=== PATIENT | male | born 1965 | race Caucasian/White ===

== ENCOUNTER 2016-02-29 11:38 | Emergency (ER) | payer OTHER ==
--- NOTE | 2016-02-29 12:53 | ED ---
General Adult HPI - General Chief complaint: Extremity Injury, Lower Stated complaint: LEFT ANKLE INJURY Source: patient, family, RN notes reviewed Mode of arrival: ambulatory - History of Present Illness Initial comments: Chief complaint history of present illness a 50-year-old male here for complaint of pain to his left ankle and left proximal fibula area. The patient reports he slipped and fell on the ice yesterday around 2:30 AM. He has a small bruise on his inner left arm but does not complain of discomfort in that area. No head injury. No other complaints. - Related Data Home Medications Medication Instructions Recorded Confirmed HYDROcodone/IBUPROFEN 7.5-200 1 tab PO DAILY PRN 02/29/16 02/29/16 [Vicoprofen 7.5-200 mg] Ibuprofen [Motrin] 800 mg PO Q6HR PRN 02/29/16 02/29/16 Naproxen Sodium [Aleve] 880 mg PO DAILY PRN 02/29/16 02/29/16 Previous Rx's Medication Instructions Recorded Hydrocodone/Acetaminophen [[place] 1 each PO Q6HR PRN #30 tab 02/29/16 5-325] Allergies Allergy/AdvReac Type Severity Reaction Status Date / Time No Known Allergies Allergy Verified 02/29/16 12:51 Review of Systems ROS Statement: Those systems with pertinent positive or pertinent negative responses have been documented in the HPI. Review of systems no headache no visual acuity changes no neck pain no chest pain no shortness of breath no GI or complaints or problems no neuro deficits. His pain is to the left leg and ankle. All systems were reviewed. Past medical problems significant for an injury off a 4 vargas. Resulting in fractured toes on his left foot and rib fractures. He also has history of migraines in the anxiety. He denies any surgeries. Family history mother had breast cancer. Patient denies any ALLERGIES. He smokes strongly encouraged stop drinks alcohol socially. ROS Other: All systems not noted in ROS Statement are negative. Past Medical History Additional Past Medical History / Comment(s): migraines History of Any Multi-Drug Resistant Organisms: None Reported Past Surgical History: No Surgical Hx Reported Past Psychological History: Anxiety Smoking Status: Current every day smoker Past Alcohol Use History: None Reported Past Drug Use History: None Reported General Exam - General Exam Comments Initial Comments: General: The patient is awake and alert, complaining of left ankle pain. Vital signs show temperature 97.8 pulse 60 respiratory rate 18 blood pressure 137/90. Eye: Pupils are equal, , extra-ocular movements are intact; there is normal conjunctiva bilaterally. No signs of icterus. Ears, nose, mouth and throat: There are moist mucous membranes Neck: The neck is supple, there is no tenderness Cardiovascular: There is a regular rate and rhythm. No murmur, rub or gallop is appreciated. Respiratory: Lungs are clear to auscultation, respirations are non-labored, breath sounds are equal. No wheezes, stridor, rales, or rhonchi. Gastrointestinal: Soft, non-distended, non-tender abdomen without masses or organomegaly noted. There is no rebound or guarding present. No CVA tenderness. Bowel sounds are unremarkable. Back: There is no tenderness to palpation in the midline. There is no obvious deformity. No rashes noted. Musculoskeletal: All extremities normal except a small bruise on the inner distal left humerus but with full range of motion to his left arm no complaints of any significant discomfort. Also pain to the left ankle and proximal left fibula. Norvasc status of foot is intact. Minimal swelling. X-rays pending.. Neurological: No neuro deficits no numbness no tingling. Skin: Skin is warm and dry and no rashes or lesions are noted. Psychiatric: Past history of anxiety not currently taking any medications. No complaints of any problems with anxiety at this time. Course Vital Signs 02/29/16 02/29/16 12:22 13:31 Temperature 97.8 F 98.6 F Pulse Rate 60 62 Respiratory 18 18 Rate Blood Pressure 137/90 110/67 O2 Sat by Pulse 98 96 Oximetry Medical Decision Making - Medical Decision Making X-ray of the tib-fib and left ankle shows a spiral fracture distal fibula diaphysis. As read by Dr. Savage. Patient had an OCL splint short leg cast applied 3 x 30 and chest. The patient will be referred to his orthopedic surgeon if he does not have an orthopedic surgeon, [facility] Disposition Clinical Impression: Fibula fracture Disposition: HOME SELF-CARE Condition: Fair Instructions: Ankle Fracture (ED) Additional Instructions: Use crutches, ice elevate wear splint. Follow-up with your orthopedic surgeon, family doctor or [facility]. Prescriptions: Hydrocodone/Acetaminophen [[place] 5-325] 1 each PO Q6HR PRN #30 tab PRN Reason: Pain Referrals: Nonstaff,Physician [Primary Care Provider] - 1-2 days Ramos Elkins MD [STAFF PHYSICIAN] - 1-2 days Time of Disposition: 15:12
--- NOTE | 2016-02-29 13:05 | XR ---
EXAMINATION TYPE: XR ankle complete LT DATE OF EXAM: 02/29/2016 12:59 PM COMPARISON: NONE HISTORY: Pain TECHNIQUE: 3 views left ankle FINDINGS: There is a spiral fracture fracture through the metaphysis of the distal fibula. Soft tissu es appear normal. Ankle mortise is intact. IMPRESSION: 1. Spiral fracture distal fibula metaphysis.
--- NOTE | 2016-02-29 13:07 | XR ---
EXAMINATION TYPE: XR tibia fibula LT DATE OF EXAM: 02/29/2016 1:00 PM COMPARISON: Left ankle same date HISTORY: Fall, pain TECHNIQUE: 2 views left tibia and fibula FINDINGS: Spiral fracture of the distal metaphyseal fibula is again evident. On this image there appe ars to be a small avulsion from the inferior lateral malleolus. On the anterior tibia is excluded fro m the lateral projection. Tibia and fibula otherwise appear intact. IMPRESSION: 1. Spiral fracture distal metaphyseal fibula. 2. A small avulsion from the distal fibula is better visualized on this examination than on the ankle images.
[2016-02-29 15:30] VITALS: BP 116/63; PULSE 65; RESP 16; TEMP 98.4
== END 2016-02-29 15:38 | disposition home or self-care (01) ==
LOC: EC 11:38
DX: S89.302A Unspecified physeal fracture of lower end of left fibula, initial encounter for closed fracture (principal); F17.200 Nicotine dependence, unspecified, uncomplicated; W00.0XXA Fall on same level due to ice and snow, initial encounter
CPT/HCPCS: 29515; 99283

== ENCOUNTER 2023-05-10 13:18 | Inpatient (IN) | payer OTHER ==
[2023-05-10] MEDS: ASPIRIN 81 MG PO STA (13:27)
[2023-05-10] MEDS: HEPARIN SODIUM 1,000 UN/ML (10ML VL) IV ONE ×2 (13:30→13:54)
[2023-05-10] MEDS ORDERED: LIDOCAINE 1% INJ 10MG/ML (20 ML MDV) ONE (13:30)
[2023-05-10] MEDS ORDERED: VERAPAMIL 2.5 MG/ML 2 ML AMP ONE (13:30)
[2023-05-10] MEDS: NITROGLYCERIN OINT 1 INCH/GM PACKET TOPICAL STA (13:32)
[2023-05-10 13:38] LABS: Basophils # (A) 0.1 k/uL (0-0.2); Basophils % (A) 1 %; Eosinophils # (A) 0.4 k/uL (0-0.7); Eosinophils % (A) 3 %; HCT 47.6 % (39.0-53.0); HGB 16.1 gm/dL (13.0-17.5); Lymphocytes # (A) 2.4 k/uL (1.0-4.8); Lymphocytes % (A) 16 %; MCH 32.8 pg (25.0-35.0); MCHC 33.9 g/dL (31.0-37.0); MCV 96.9 fL (80.0-100.0); Mean Platelet Volume 6.8; Monocytes # (A) 0.6 k/uL (0-1.0); Monocytes % (A) 4 %; Neutrophils # (A) 10.9 k/uL (1.3-7.7); Neutrophils % (A) 75 %; Platelet Count 394 k/uL (150-450); RBC 4.91 m/uL (4.30-5.90); RDW 12.6 % (11.5-15.5); WBC 14.4 k/uL (3.8-10.6)
--- NOTE | 2023-05-10 13:38 | ED ---
General Adult HPI - General Chief complaint: Chest Pain Stated complaint: CHEST PAIN Time Seen by Provider: 05/10/23 13:22 Source: patient, RN notes reviewed, old records reviewed Mode of arrival: ambulatory Limitations: no limitations - History of Present Illness Initial comments: This is a 57-year-old male with a past medical history significant for smoking and strong family history of heart disease. Patient states he is quite a heavy smoker. Patient comes in today because he complaining of chest pain that radiates down his left arm. Patient states that started about 2 hours prior to arrival. Patient denies any difficulty breathing or diaphoretic episode. Patient denies lightheadedness or dizziness. Patient [place] any back pain. Patient denies any abdominal pain patient has nausea vomiting or diarrhea. Patient states he has no prior history of heart disease. Patient states he did take 2 aspirin at home prior to arrival. - Related Data Home Medications Medication Instructions Recorded Confirmed HYDROcodone/IBUPROFEN 7.5-200 1 tab PO DAILY PRN 02/29/16 02/29/16 [Vicoprofen 7.5-200 mg] Ibuprofen [Motrin] 800 mg PO Q6HR PRN 02/29/16 02/29/16 Naproxen Sodium [Aleve] 880 mg PO DAILY PRN 02/29/16 02/29/16 Previous Rx's Medication Instructions Recorded Hydrocodone/Acetaminophen [[place] 1 each PO Q6HR PRN #30 tab 02/29/16 5-325] Allergies Allergy/AdvReac Type Severity Reaction Status Date / Time No Known Allergies Allergy Verified 02/29/16 12:51 Review of Systems ROS Statement: Those systems with pertinent positive or pertinent negative responses have been documented in the HPI. ROS Other: All systems not noted in ROS Statement are negative. Past Medical History Additional Past Medical History / Comment(s): migraines History of Any Multi-Drug Resistant Organisms: None Reported Past Surgical History: No Surgical Hx Reported Past Psychological History: Anxiety Past Alcohol Use History: None Reported Past Drug Use History: None Reported General Exam - General Exam Comments Initial Comments: GENERAL: Patient is well-developed and well-nourished. Patient is nontoxic and well- hydrated and is in moderate distress. ENT: Neck is soft and supple. No significant lymphadenopathy is noted. Oropharynx is clear. Moist mucous membranes. Neck has full range of motion without eliciting any pain. EYES: The sclera were anicteric and conjunctiva were pink and moist. Extraocular movements were intact and pupils were equal round and reactive to light. Eyelids were unremarkable. PULMONARY: Unlabored respirations. Good breath sounds bilaterally. No audible rales rhonchi or wheezing was noted. CARDIOVASCULAR: There is a regular rate and rhythm without any murmurs gallops or rubs. ABDOMEN: Soft and nontender with normal bowel sounds. SKIN: Skin is clear with no lesions or rashes and otherwise unremarkable. NEUROLOGIC: Patient is alert and oriented x3. Cranial nerves II through XII are grossly intact. Motor and sensory are also intact. Normal speech, volume and content. Symmetrical smile. MUSCULOSKELETAL: Normal extremities with adequate strength and full range of motion. LYMPHATICS: No significant lymphadenopathy is noted PSYCHIATRIC: Normal psychiatric evaluation. Limitations: no limitations Course Vital Signs 05/10/23 13:21 Temperature 98 F Pulse Rate 69 Respiratory 16 Rate Blood Pressure 162/100 O2 Sat by Pulse 99 Oximetry Medical Decision Making - Medical Decision Making EKG is interpreted by myself but EKG shows a sinus rhythm at 63 bpm VT interval 174 QRS is 93 QT interval is 422 QTc is 429. Patient's EKG shows ST segment elevation in 1 and aVL as well as depression in 3 and aVF. Immediately after seeing the EKG I called a STEMI overhead. Was pt. sent in by a medical professional or institution ([facility], OVERHEAD DISTRIBUTION ENGINEER, urgent care, hospital, or senior care...) When possible be specific @ -No Did you speak to anyone other than the patient for history (EMS, parent, family, police, friend...)? What history was obtained from this source @ -No Did you review nursing and triage notes (agree or disagree)? Why? @ -I reviewed and agree with nursing and triage notes Were old charts reviewed (outside hosp., previous admission, EMS record, old EKG, old radiological studies, urgent care reports/EKG's, senior care records)? Report findings @ -I reviewed prior charts and prior lab work on this patient Differential Diagnosis (chest pain, altered mental status, abdominal pain women, abdominal pain men, vaginal bleeding, weakness, fever, dyspnea, syncope, headache, dizziness, GI bleed, back pain, seizure, CVA, palpatations, mental health, musculoskeletal)? @ -Differential Chest Pain: Stable Angina, Unstable Angina, STEMI, NSTEMI Aortic Dissection, Pneumothorax, Musculoskeletal, Esophageal Spasm GERD, Cholecystitis, Pancreatitis, Zoster, this is not meant to be an all-inclusive list. EKG interpreted by me (3pts min.). @ -As above X-rays interpreted by me (1pt min.). @ -Chest x-ray shows no acute abnormality CT interpreted by me (1pt min.). @ -None done U/S interpreted by me (1pt. min.). @ -None done What testing was considered but not performed or refused? (CT, X-rays, U/S, labs)? Why? @ -None What meds were considered but not given or refused? Why? @ -None Did you discuss the management of the patient with other professionals (professionals i.e. , PA, OVERHEAD DISTRIBUTION ENGINEER, lab, RT, psych nurse, social sciences lecturer, applications scientist, teacher, tactical response group officer, housing case manager)? Give summary @ -I spoke with Dr. Amado and [facility] Dr. Amado wanted the patient up for lab as soon as possible Was smoking cessation discussed for >3mins.? @ -No Was critical care preformed (if so, how long)? @ - 30 minutes Were there social determinants of health that impacted care today? How? (Homelessness, low income, unemployed, alcoholism, drug addiction, transportation, low edu. Level, literacy, decrease access to med. care, [facility], rehab)? @ -No Was there de-escalation of care discussed even if they declined (Discuss DNR or withdrawal of care, Hospice)? DNR status @ -No What co-morbidities impacted this encounter? (DM, HTN, Smoking, COPD, CAD, Cancer, CVA, ARF, Chemo, Hep., AIDS, mental health diagnosis, sleep apnea, morbid obesity)? @ -None Was patient admitted / discharged? Hospital course, mention meds given and route, prescriptions, significant lab abnormalities, going to OR and other pertinent info. @ -Patient arrived and had a STEMI on the EKG I called this overhead and spoke with Dr. Amado. Patient was given nitroglycerin immediately he also was given heparin and Lipitor. Undiagnosed new problem with uncertain prognosis? @ -No Drug Therapy requiring intensive monitoring for toxicity (Heparin, Nitro, Insulin, Cardizem)? @ -No Were any procedures done? @ -No Diagnosis/symptom? @ -STEMI Acute, or Chronic, or Acute on Chronic? @ -Acute Uncomplicated (without systemic symptoms) or Complicated (systemic symptoms)? @ -Complicated Side effects of treatment? @ -No Exacerbation, Progression, or Severe Exacerbation? @ -No Poses a threat to life or bodily function? How? (Chest pain, [place], [place], pneumonia, PE, COPD, DKA, ARF, appy, cholecystitis, CVA, Diverticulitis, Homicidal, Suicidal, threat to staff... and all critical care pts) @ -Yes this can lead to poor ejection fraction and poor perfusion and endorgan dysfunction Critical Care Time Critical Care Time: Yes Total Critical Care Time: 30 Disposition Clinical Impression: ST elevation myocardial infarction (STEMI) Disposition: ADMITTED IP TO THIS HOSP Referrals: [facility] [Primary Care Provider] - 1-2 days Time of Disposition: 13:38
[2023-05-10] MEDS: HEPARIN SOD,PORK IN 0.45% NACL 25,000 UNIT in 0.45% NACL 1 250ML.BAG IV SCH (13:39)
[2023-05-10] MEDS ORDERED: fentaNYL (PF) 50 MCG/ML 2 ML AMP ONE (13:41)
[2023-05-10] MEDS: NITROGLYCERIN SL TABS 0.4 MG TAB SUBLINGUAL STA (13:41)
[2023-05-10] MEDS ORDERED: HEPARIN SODIUM 1,000 UN/ML (10ML VL) ONE (13:41)
[2023-05-10] MEDS: fentaNYL (PF) 50 MCG/ML 2 ML AMP IVP ONE (13:44)
[2023-05-10] MEDS: VERAPAMIL SYRINGE (5 MG/10 ML) INTRAARTER ONE (13:46)
[2023-05-10] MEDS: LIDOCAINE 1% INJ 10MG/ML (30 ML VIAL-PF) SQ ONE (13:46)
[2023-05-10] MEDS: SODIUM CHLORIDE 0.9% 1,000 ML IV ONE (13:50)
[2023-05-10 13:52] LABS: INR 0.9 (<1.2); Partial Thromboplastin Time 22.8 sec (22.0-30.0); Prothrombin Time 10.1 sec (10.0-12.5)
[2023-05-10] MEDS: MIDAZOLAM 2 MG/2 ML VIAL IVP ONE (13:54)
[2023-05-10] MEDS ORDERED: PRASUGREL 10 MG TAB ONE ×3 (13:57→13:58)
--- NOTE | 2023-05-10 13:59 | XR ---
EXAMINATION TYPE: XR chest 1V DATE OF EXAM: 05/10/2023 1:39 PM CLINICAL INDICATION:Male, 57 years old with history of Chest Pain; COMPARISON: Chest radiographs from 09/06/2014. TECHNIQUE: XR chest 1V Frontal view of the chest. FINDINGS: Lungs/Pleura: There is no evidence of pleural effusion, focal consolidation, or pneumothorax. Pulmonary vascularity: Unremarkable. Heart/mediastinum: Cardiomediastinal silhouette is unremarkable. Musculoskeletal: No acute osseous pathology. IMPRESSION: No acute cardiopulmonary disease/process.
[2023-05-10] MEDS: PRASUGREL 10 MG TAB PO ONE (14:00)
[2023-05-10 14:04] LABS: ALT 28 U/L (4-49); AST 25 U/L (17-59); African American GFR (CKD) >90 (>60 ml/min/1.73 sqM); Albumin 4.6 g/dL (3.5-5.0); Alkaline Phosphatase 114 U/L (38-126); Anion Gap 13 mmol/L; Blood Urea Nitrogen 11 mg/dL (9-20); Calcium 9.6 mg/dL (8.4-10.2); Carbon Dioxide 21 mmol/L (22-30); Chloride 105 mmol/L (98-107); Glucose 147 mg/dL (74-99); Non-African American GFR(CKD) >90 (>60 ml/min/1.73 sqM); Potassium 3.7 mmol/L (3.5-5.1); Sodium 139 mmol/L (137-145); Total Bilirubin 1.3 mg/dL (0.2-1.3); Total Protein 7.8 g/dL (6.3-8.2)
[2023-05-10] MEDS ORDERED: ASPIRIN 81 MG ONE (14:24)
[2023-05-10] MEDS: ASPIRIN 81 MG PO ONE (14:24)
[2023-05-10] MEDS: IOPAMIDOL-370 200ML BTL INJ ONE (14:25)
--- NOTE | 2023-05-10 14:42 | P.CRDCN ---
History of Present Illness Consult date: 05/10/23 History of present illness: History of Present Illness: The patient is a 57-year-old male with known history of chronic tobacco use, does not follow with a physician on a regular basis who presented to the emergency room with an acute episode of chest discomfort while doing physical activity associated with dyspnea. In the emergency room he was found to have ST elevation in lead I and aVL and ST depression inferiorly. Patient has been complaining of chest discomfort on and off for the last couple months. He has no prior documented history of CAD or history of CHF. He has no prior cardiac workup. He has no documented history of hypertension, hyperlipidemia or diabetes although he has not seen a physician on a regular basis. He is a smoker but no history of alcohol intake or drug use. He denies any peripheral edema, PND or orthopnea. He has no history of arrhythmia, significant dizziness or syncope. Medications: Naprosyn on a as needed basis Review of Systems: Respiratory: No history of asthma, bronchitis or recent cough. GI: No nausea or vomiting . No history of peptic ulcer disease. No recent GI bleed. : No hematuria or dysuria. Nervous System: No stroke or seizure. Physical Examination: 57-year-old male, alert oriented in mild discomfort, evaluated in the cardiac catheterization laboratory,Blood pressure 178/103, Heart rate 80 Head: Normocephalic. Eyes: Sclerae nonicteric. Neck: Good carotid upstroke, no bruit, no jugular venous distention. Lungs: Clear to auscultation anteriorly. Heart: Regular rate and rhythm, S1-S2, no S3, no rub. No murmur. Abdomen: Soft nontender, positive bowel sounds no organomegaly. Extremities: No edema, intact distal pulses. Labs: Hemoglobin 16.1, potassium 3.7, BUN 11, creatinine 0.92, glucose 147, troponin less than 0.012. Chest x-ray with no acute infiltrate EKG: Sinus mechanism rate of 63 ST elevation in lead I and aVL with T wave inversion and ST depression in lead III and aVF consistent with high lateral wall myocardial infarction Impression: 1. Acute STEMI probable in the diagonal branch territory 2. Chronic tobacco use 3. Elevated blood sugar, no documented history of diabetes Plan: 1. Proceed with emergent cardiac catheterization, the risks and the complications were discussed with the patient 2. Obtain an echocardiogram with Doppler 3. Smoking cessation 4. Follow blood sugar 5. Depending on his progress further recommendations will be made, thank you for this consult we will follow with you. Past Medical History Additional Past Medical History / Comment(s): migraines History of Any Multi-Drug Resistant Organisms: None Reported Past Surgical History: No Surgical Hx Reported Past Psychological History: Anxiety Past Alcohol Use History: None Reported Past Drug Use History: None Reported Medications and Allergies Home Medications Medication Instructions Recorded Confirmed Type HYDROcodone/IBUPROFEN 7.5-200 1 tab PO DAILY PRN 02/29/16 02/29/16 History [Vicoprofen 7.5-200 mg] Hydrocodone/Acetaminophen [[place] 1 each PO Q6HR PRN #30 tab 02/29/16 Rx 5-325] Ibuprofen [Motrin] 800 mg PO Q6HR PRN 02/29/16 02/29/16 History Naproxen Sodium [Aleve] 880 mg PO DAILY PRN 02/29/16 02/29/16 History Allergies Allergy/AdvReac Type Severity Reaction Status Date / Time No Known Allergies Allergy Verified 02/29/16 12:51 Physical Exam Vitals: Vital Signs Temp Pulse Resp BP Pulse Ox 05/10/23 13:33 80 18 178/103 98 05/10/23 13:27 70 24 181/114 100 05/10/23 13:21 98 F 69 16 162/100 99 Intake and Output 05/09/23 05/10/23 05/10/23 22:59 06:59 14:59 Intake Total 600 Balance 600 Intake: IV 600 Other: Weight 72.575 kg Results 05/10/23 13:35 05/10/23 13:43 Cardiac Enzymes 05/10/23 05/10/23 Range/Units 13:35 13:43 AST 25 (17-59) U/L Troponin I <0.012 (0.000-0.034) ng/mL Coagulation 05/10/23 Range/Units 13:35 PT 10.1 (10.0-12.5) sec APTT 22.8 (22.0-30.0) sec CBC 05/10/23 Range/Units 13:35 WBC 14.4 H (3.8-10.6) k/uL RBC 4.91 (4.30-5.90) m/uL Hgb 16.1 (13.0-17.5) gm/dL Hct 47.6 (39.0-53.0) % Plt Count 394 (150-450) k/uL Comprehensive Metabolic Panel 05/10/23 Range/Units 13:43 Sodium 139 (137-145) mmol/L Potassium 3.7 (3.5-5.1) mmol/L Chloride 105 (98-107) mmol/L Carbon Dioxide 21 L (22-30) mmol/L BUN 11 (9-20) mg/dL Creatinine 0.92 (0.66-1.25) mg/dL Glucose 147 H (74-99) mg/dL Calcium 9.6 (8.4-10.2) mg/dL AST 25 (17-59) U/L ALT 28 (4-49) U/L Alkaline Phosphatase 114 (38-126) U/L Total Protein 7.8 (6.3-8.2) g/dL Albumin 4.6 (3.5-5.0) g/dL Intake and Output 05/09/23 05/10/23 05/10/23 22:59 06:59 14:59 Intake Total 600 Balance 600 Intake: IV 600 Other: Weight 72.575 kg Patient Weight 05/11/23 06:59 Weight 72.575 kg 05/10/23 13:35 05/10/23 13:43
[2023-05-10] MEDS: SODIUM CHLORIDE 0.9% 1,000 ML in EMPTY BAG 1 BAG IV SCH (14:48)
[2023-05-10] MEDS ORDERED: NITROGLYCERIN SL TABS 0.4 MG TAB SUBLINGUAL PRN (14:48)
[2023-05-10] MEDS ORDERED: ATROPINE SULFATE 0.1 MG/ML 10ML SYRINGE IV PRN (14:48)
[2023-05-10] MEDS ORDERED: RX INFO: IV CONTRAST WAS GIVEN 1 EACH MISC MISCELLANE PRN (14:48)
[2023-05-10] MEDS ORDERED: MAG HYDROX/AL HYDROX/SIMETH 30 ML CUP PO PRN (14:48)
[2023-05-10] MEDS ORDERED: ZOLPIDEM 5 MG TAB PO PRN (14:48)
--- NOTE | 2023-05-10 14:48 | P.CARDCATH ---
Date of Procedure: 05/10/23 Description of Procedure: Cardiac Catheterization: The patient is a 57-year-old male with no prior documented history of CAD who presented with an acute myocardial infarction. Recommendations were made regarding cardiac catheterization, the risks and the complications were discussed with the patient who is in full understanding and agreement. Procedure Description: Patient was brought to petroleum refinery laborer in fasting semi-sedated state after receiving Fentanyl and Benadryl achieiving moderate conscious sedated state. Using Xylocaine Anesthesia and modified Seldinger technique, a 6-British sheath was introduced in the right radial artery . Subsequently, selective coronary angiography was performed using a 5-British 3.5 bend Hua catheter and 6 British EBU 3.75 guiding catheter. Multiple views of the coronary artery including hemiaxial views were obtained. The right Hua catheter was used to cross the aortic valve and LVEDP was calculated. PCI: Using the 6 [place] EBU 3.75 guiding catheter the left main was cannulated subsequently a 0.014 BMW J-wire was positioned in the first diagonal branch. A 2.25 x 12 mm trek balloon was advanced and 1 inflation at 8 muna was done, after removing the balloon a 2.25 x 15 mm Xience víctor point stent was deployed at 16 muna. Subsequently an Ateeda IVUS catheter was introduced and imaging were obtained following that, a 2.5 x 12 mm NC trek balloon was advanced and 1 inflation at 10 muna was done. After removing the wire images were obtained and revealed stable successful stenting. Catheter and sheath were removed. Hemostasis was obtained with deployment of vascular band . There was no immediate complication. Patient was returned to room in stable condition. Of note, the patient received a total of 2000 units of intravenous heparin as well as intra-arterial verapamil. He received a loading dose of Effient, his ACT was monitored. His chest discomfort and EKG changes improved at the end of the procedure. Findings: Left main: This is a short size vessel that bifurcated into LAD and left circumflex, left main has no obstructive disease LAD: This is a large size vessel, reaching to the apex with a wraparound apex segment giving rise to 2 diagonal branch, the first diagonal branch has a 95% stenosis proximally after the takeoff of the diagonal branch there is intimal disease of 30%, the rest of the vessel has no high-grade stenosis Left circumflex: This is a dominant vessel large in caliber giving rise to 2 obtuse marginal branch and distally bifurcating into PDA and PLV, the left circumflex and its branches have no obstructive disease RCA: This is a small nondominant vessel that has no evidence of high-grade stenosis Left Ventriculogram: Not performed Hemodynamics: There was no gradient across aortic valve, LVEDP was 8-10 mmHg Conclusion: 1. Severe stenosis in the first diagonal branch 2. Mild disease in the mid LAD 3. Left dominance 4. Successful stenting of the first diagonal branch with reduction of stenosis from 95% to 0% with intravascular ultrasound imaging Recommendations: The patient will continue on aspirin and Effient without any interruption for 1 year in addition to aggressive coronary risks modifications, attempting to maintain LDL less than 70 mg/dL. The findings and the recommendations were discussed with the patient and the family and they were in full understanding and agreement. Duration of sedation is 35 minutes.
[2023-05-10] MEDS ORDERED: NALOXONE 0.4 MG/ML 1 ML VIAL IV PRN (15:05)
[2023-05-10] MEDS ORDERED: MELATONIN 3 MG TABLET PO PRN (15:06)
[2023-05-10] MEDS ORDERED: HYDROcodone/APAP 5-325MG 1 EACH TAB PO PRN (15:06)
[2023-05-10] MEDS ORDERED: ACETAMINOPHEN TAB 325 MG TAB PO PRN (15:06)
[2023-05-10] MEDS ORDERED: bisacodyL 5 MG TABLET.DR PO PRN (15:06)
[2023-05-10] MEDS ORDERED: ONDANSETRON 4 MG/2 ML VIAL IVP PRN (15:06)
[2023-05-10] MEDS: SODIUM CHLORIDE 0.9% 500 ML 500 ML IV STA (15:43)
--- NOTE | 2023-05-10 16:00 | P.HPIM ---
History of Present Illness H&P Date: 05/10/23 Chief Complaint: chest pain Patient is a 57-year-old male with a past medical history of migraine headaches and nicotine dependency who presented to the emergency department with chest pain. In the ER he was found to have an acute ST segment elevated myocardial infarction with ST segment elevation in lead I and aVL with reciprocal ST depression inferiorly. He was emergently seen by cardiology. He was taken to the [facility] and underwent stenting of the first diagonal branch of the LAD. He was subsequently admitted to the ICU. Initial laboratory analysis consisted of CBC, coags, and CMP all of which were unremarkable. Initial troponin in the ER was unremarkable. Chest x-ray showed no acute cardiopulmonary process. Patient was started on aspirin, Lipitor, and Effient. Patient seen and examined at bedside. He is feeling much better after the cardiac cath. He reports that approximately 2 hours before arrival he started having chest discomfort associated with some pain in his arm and just overall not feeling well. He also reports intermittent chest discomfort for the last few months that he had initially attributed to GERD. He has not seen a physician in quite some years. He has no other complaints currently. Vital signs reviewed General: nontoxic, no distress, appears at stated age Derm: warm, dry Eyes: EOMI, no lid lag, anicteric sclera, pupils equal round reactive to light ENT: Nose and ears atraumatic Cardiovascular: S1S2 reg, no murmur, no edema Lungs: clear to auscultation bilateral, no rhonchi, no rales, no wheeze, no accessory muscle use Abdominal: soft, nontender to palpation, no guarding Ext: no gross muscle atrophy, no contractures Neuro: CN II-XII grossly intact, No focal neuro deficits Psych: Alert, oriented, appropriate affect Assessment/Plan: ST segment elevated myocardial infarction status post PCI to the first diagonal -Aspirin 81 mg daily, Effient 10 mg daily, Lopressor 25 mg twice daily, Lipitor 80 mg daily -Follow telemetry -Check echocardiogram -Cardiology consult reviewed -Check lipid profile Mildly elevated blood sugars -Suspect that this is elevated due to stress -Check A1c to rule out diabetes Nicotine dependency - cessation Imaging: As Per HPI Data Review: As Per HPI The patient is admitted with an anticipated greater than 2 midnight stay for evaluation of STEMI. Surrogate decision-maker: Mother CODE STATUS: Full DVT prophylaxis: Lovenox Anticipated discharge date: Pending Clinical course Anticipated discharge place: Pending Clinical Course This dictation was prepared using [employer] voice recognition software. Though every attempt is made to correct errors during dictation some may still exist. Past Medical History Additional Past Medical History / Comment(s): migraines, multiple broken bones History of Any Multi-Drug Resistant Organisms: None Reported Past Surgical History: No Surgical Hx Reported Past Psychological History: Anxiety Past Alcohol Use History: None Reported Past Drug Use History: None Reported Medications and Allergies Home Medications Medication Instructions Recorded Confirmed Type HYDROcodone/IBUPROFEN 7.5-200 1 tab PO DAILY PRN 02/29/16 02/29/16 History [Vicoprofen 7.5-200 mg] Hydrocodone/Acetaminophen [[place] 1 each PO Q6HR PRN #30 tab 02/29/16 Rx 5-325] Ibuprofen [Motrin] 800 mg PO Q6HR PRN 02/29/16 02/29/16 History Naproxen Sodium [Aleve] 880 mg PO DAILY PRN 02/29/16 02/29/16 History Allergies Allergy/AdvReac Type Severity Reaction Status Date / Time No Known Allergies Allergy Verified 02/29/16 12:51 Physical Exam Osteopathic Statement: *. No significant issues noted on an osteopathic structural exam other than those noted in the History and Physical/Consult. Vitals: Vital Signs Temp Pulse Resp BP Pulse Ox 05/10/23 15:30 70 16 130/83 97 05/10/23 15:20 62 13 130/83 97 05/10/23 15:10 69 13 130/83 96 05/10/23 15:00 68 23 127/79 96 05/10/23 14:50 97.6 F 60 16 127/79 98 05/10/23 14:43 69 20 05/10/23 13:33 80 18 178/103 98 05/10/23 13:27 70 24 181/114 100 05/10/23 13:21 98 F 69 16 162/100 99 Intake and Output 05/10/23 05/10/23 05/10/23 06:59 14:59 22:59 Intake Total 600 75 Output Total 0 Balance 600 75 Intake: IV 600 Intake, IV Titration 75 Amount Sodium Chloride 0.9% 1, 75 000 ml In Empty Bag 1 bag @ 1 ML/KG/HR 72.575 mls/ hr IV .[id number] [facility] Rx#: [id number] Oral 0 Output: Urine 0 Other: Weight 72.575 kg Results CBC & Chem 7: 05/10/23 13:35 05/10/23 13:43 Labs: Abnormal Lab Results - Last 24 Hours (Table) 05/10/23 05/10/23 Range/Units 13:35 13:43 WBC 14.4 H (3.8-10.6) k/uL Neutrophils # 10.9 H (1.3-7.7) k/uL Carbon Dioxide 21 L (22-30) mmol/L Glucose 147 H (74-99) mg/dL
[2023-05-10] MEDS ORDERED: Potassium Replacement Protocol 1 EACH MISC MISCELLANE PRN (20:21)
[2023-05-10] MEDS: ATORVASTATIN 80 MG TAB PO SCH (20:29)
[2023-05-10] MEDS: METOPROLOL TARTRATE 25 MG TAB PO SCH (20:29)
[2023-05-10] MEDS: POTASSIUM CHLORIDE ER 20 MEQ TAB.ER PO SCH (20:29)
[2023-05-11 04:58] LABS: Basophils # (A) 0.1 k/uL (0-0.2); Basophils % (A) 1 %; Eosinophils # (A) 0.5 k/uL (0-0.7); Eosinophils % (A) 5 %; HCT 42.2 % (39.0-53.0); HGB 13.9 gm/dL (13.0-17.5); Lymphocytes # (A) 2.9 k/uL (1.0-4.8); Lymphocytes % (A) 31 %; MCH 31.8 pg (25.0-35.0); MCHC 32.9 g/dL (31.0-37.0); MCV 96.4 fL (80.0-100.0); Mean Platelet Volume 6.7; Monocytes # (A) 0.6 k/uL (0-1.0); Monocytes % (A) 6 %; Neutrophils # (A) 5.1 k/uL (1.3-7.7); Neutrophils % (A) 55 %; Platelet Count 325 k/uL (150-450); RBC 4.38 m/uL (4.30-5.90); RDW 12.7 % (11.5-15.5); WBC 9.2 k/uL (3.8-10.6)
[2023-05-11 05:05] LABS: African American GFR (CKD) >90 (>60 ml/min/1.73 sqM); Anion Gap 4 mmol/L; Blood Urea Nitrogen 11 mg/dL (9-20); Calcium 8.4 mg/dL (8.4-10.2); Carbon Dioxide 19 mmol/L (22-30); Chloride 114 mmol/L (98-107); Glucose 95 mg/dL (74-99); Non-African American GFR(CKD) >90 (>60 ml/min/1.73 sqM); Potassium 4.2 mmol/L (3.5-5.1); Sodium 137 mmol/L (137-145)
--- NOTE | 2023-05-11 07:46 | P.PN ---
Subjective Progress Note Date: 05/11/23 PROGRESS NOTE The patient is a 57-year-old male with known history of chronic tobacco use, does not follow with a physician on a regular basis who presented to the emergency room with an acute episode of chest discomfort while doing physical activity associated with dyspnea. In the emergency room he was found to have ST elevation in lead I and aVL and ST depression inferiorly. Patient has been complaining of chest discomfort on and off for the last couple months. He has no prior documented history of CAD or history of CHF. He has no prior cardiac workup. He has no documented history of hypertension, hyperlipidemia or diabetes although he has not seen a physician on a regular basis. He is a s moker but no history of alcohol intake or drug use. He denies any peripheral edema, PND or orthopnea. He has no history of arrhythmia, significant dizziness or syncope. May 10: The patient presented with an acute STEMI yesterday and was found to have severe stenosis in the diagonal branch. He underwent stenting of that vessel. He is feeling well this morning. He denies any chest discomfort, dizziness or palpitations. He is in sinus mechanism and hemodynamically stable. Medications: Aspirin, Lipitor 80 mg daily, metoprolol 25 mg twice a day, Effient 10 mg daily PHYSICAL EXAMINATION: Blood pressure 103/80 heart rate 60 LUNGS: Clear to auscultation HEART: Regular rate and rhythm, S1, S2. No S3. No systolic murmur ABDOMEN: Soft, nontender, no organomegaly EXTREMETIES: No edema, right radial pulse intact LAB: WBC 9.2, hemoglobin 13.9, BUN 11, creatinine 1.72. EKG with resolution of the ST segment elevation IMPRESSION: 1. Status post stenting of the first diagonal branch in the setting of STEMI 2. History of tobacco use PLAN: 1. Continue present therapy 2. Increase physical activity and transfer to telemetry 3. Obtain an echocardiogram with Doppler 4. If stable probable discharge home tomorrow Objective - Vital Signs Vital signs: Vital Signs Temp 97.6 F 05/11/23 05:00 Pulse 63 05/11/23 07:00 Resp 10 L 05/11/23 07:00 BP 103/83 05/11/23 07:00 Pulse Ox 93 L 05/11/23 07:00 FiO2 Intake & Output 05/10/23 05/11/23 05/11/23 18:59 06:59 18:59 Intake Total 900 1580 195 Output Total 0 0 Balance 900 1580 195 Weight 72.575 kg 73.3 kg Intake: IV 600 Intake, IV Titration 300 900 75 Amount Sodium Chloride 0.9% 1, 300 900 75 000 ml In Empty Bag 1 bag @ 1 ML/KG/HR 72.575 mls/ hr IV .[id number] [facility] Rx#: [id number] Oral 0 680 Tube Feeding 120 Output: Urine 0 0 Other: Voiding Method Urinal Toilet # Voids 1 # Bowel Movements 0 - Labs CBC & Chem 7: 05/11/23 04:41 05/11/23 04:41 Labs: Abnormal Lab Results - Last 24 Hours (Table) 05/10/23 05/10/23 05/11/23 Range/Units 13:35 13:43 04:41 WBC 14.4 H (3.8-10.6) k/uL Neutrophils # 10.9 H (1.3-7.7) k/uL Chloride 114 H (98-107) mmol/L Carbon Dioxide 21 L 19 L (22-30) mmol/L Glucose 147 H (74-99) mg/dL
[2023-05-11] MEDS: ASPIRIN 81 MG PO SCH (08:24)
[2023-05-11] MEDS: ENOXAPARIN 40 MG/0.4 ML SYRINGE SQ SCH (08:24)
[2023-05-11] MEDS: PRASUGREL 10 MG TAB PO SCH (08:25)
[2023-05-11 08:51] LABS: Chol/HDL Ratio 6.81 Ratio; LDL Cholesterol,Calculated 166.7 mg/dL (0.0-131.0); VLDL Calculation 19.28 mg/dL (5.00-40.00)
--- NOTE | 2023-05-11 09:24 | CA ---
Transthoracic Echo Report Name: Dieudonne Pelletier Age: 57 Gender: M : 1965 Exam Date: 05/10/2023 15:48 Exam Location: [place] [facility] Ht (in): 70 Wt (lb): 160 Ordering Physician: Edwar Amado MD ([id number]) Attending/Referring Phys: [employer] Prospect[employer] Observer Jocy Orozco RDCS Procedure CPT: Indications: stemi Cardiac Hx: Technical Quality: Fair Contrast 1: Total Dose (mL): Contrast 2: Total Dose (mL): MEASUREMENTS (Male / Female) Normal Values 2D ECHO LV Diastolic Diameter PLAX 4.2 cm 4.2 - 5.9 / 3.9 - 5.3 cm LV Systolic Diameter PLAX 2.6 cm IVS Diastolic Thickness 1.1 cm 0.6 - 1.0 / 0.6 - 0.9 cm LVPW Diastolic Thickness 1.1 cm 0.6 - 1.0 / 0.6 - 0.9 cm LV Relative Wall Thickness 0.5 RV Internal Dim ED PLAX 2.3 cm LA Volume 38.4 cm??? 18 - 58 / 22 - 52 cm??? LA Volume Index 20.3 cm???/m??? 16 - 28 cm???/m??? M-MODE Aortic Root Diameter MM 3.4 cm LA Systolic Diameter MM 4.1 cm LA Ao Ratio MM 1.2 AV Cusp Separation MM 1.9 cm DOPPLER AV Peak Velocity 146.1 cm/s AV Peak Gradient 8.5 mmHg AV Mean Velocity 103.9 cm/s AV Mean Gradient 4.8 mmHg AV Velocity Time Integral 28.9 cm LVOT Peak Velocity 114.8 cm/s LVOT Peak Gradient 5.3 mmHg LVOT Velocity Time Integral 22.4 cm MV Area PHT 5.2 cm??? Mitral E Point Velocity 84.0 cm/s Mitral A Point Velocity 69.2 cm/s Mitral E to A Ratio 1.2 MV Deceleration Time 144.6 ms MV E' Velocity 7.9 cm/s Mitral E to MV E' Ratio 10.6 TR Peak Velocity 192.7 cm/s TR Peak Gradient 14.9 mmHg Right Ventricular Systolic Press 19.9 mmHg FINDINGS Left Ventricle Mildly increased left ventricular wall thickness. Left ventricular cavity size normal. Normal left ventricular systolic function with no obvious regional wall motion abnormalities. Left ventricular ejection fraction is estimated at 55 %. Right Ventricle Normal right ventricular size and function. Right ventricular systolic pressure within normal limits. Right Atrium Normal right atrial size. Left Atrium Normal left atrial size. Mitral Valve Structurally normal mitral valve. No mitral stenosis, regurgitation or prolapse. Aortic Valve No aortic valve stenosis or regurgitation. Tricuspid Valve Structurally normal tricuspid valve. Mild tricuspid regurgitation. Pulmonic Valve Structurally normal pulmonic valve. Pericardium No pericardial effusion. Aorta Normal size aortic root and proximal ascending aorta. CONCLUSIONS Normal LV systolic function Previewed by: Dr. Jcarlos Ryder MD (Electronically Signed) Final Date: 11 May 2023 09:23
--- NOTE | 2023-05-11 10:45 | P.PN ---
Subjective Progress Note Date: 05/11/23 Patient is a 57-year-old male with a past medical history of migraine headaches and nicotine dependency who presented to the emergency department with chest pain. In the ER he was found to have an acute ST segment elevated myocardial infarction with ST segment elevation in lead I and aVL with reciprocal ST depression inferiorly. He was emergently seen by cardiology. He was taken to the [facility] and underwent stenting of the first diagonal branch of the LAD. He was subsequently admitted to the ICU. Initial laboratory analysis consisted of CBC, coags, and CMP all of which were unremarkable. Initial troponin in the ER was unremarkable. Chest x-ray showed no acute cardiopulmonary process. Patient was started on aspirin, Lipitor, and Effient. He underwent echocardiogram which showed preserved ejection fraction of 55% and no regional wall motion abnormalities. Patient seen and examined at bedside. He denies any chest pain, shortness of breath, nausea, vomiting. He feels like he should be able to go home. Vital signs reviewed General: Nontoxic, no distress, appears at stated age Cardiovascular: S1S2 reg, no murmur Lungs: CTA bilateral, no rhonchi, no rales, no accessory muscle use Abdominal: Soft, nontender to palpation, no guarding Ext: No gross muscle atrophy, no edema b/l lower extremities, no contractures Neuro: CN II-XI grossly intact, no focal neuro deficits Psych: Alert, oriented, appropriate affect Assessment/Plan: ST segment elevated myocardial infarction status post PCI to the first diagonal Dyslipidemia LDL 166.7 -Aspirin 81 mg daily, Effient 10 mg daily, Lopressor 25 mg twice daily, Lipitor 80 mg daily -Follow telemetry -Check echocardiogram -Cardiology consult reviewed -Check lipid profile Hyperchloremic metabolic acidosis -Patient is now off IV fluids and this should correct with free water intake. -Repeat basic metabolic profile in a.m. Mildly elevated blood sugars -improved A1C 5.7 Nicotine dependency - cessation Imaging: Echo with EF 55%, no wall motion abnormalities Data Review: Labs reviewed from today include CBC and basic metabolic profile which are remarkable for chloride of 114 and carbon dioxide of 19 DVT prophylaxis: Lovenox Anticipated discharge date: In a.m. Anticipated discharge place: Home This dictation was prepared using [employer] voice recognition software. Though every attempt is made to correct errors during dictation some may still e xist. Objective - Vital Signs Vital signs: Vital Signs Temp 97.8 F 05/11/23 08:00 Pulse 46 L 05/11/23 10:04 Resp 18 05/11/23 09:00 BP 103/72 05/11/23 10:04 Pulse Ox 96 05/11/23 09:00 FiO2 Intake & Output 05/10/23 05/11/23 05/11/23 18:59 06:59 18:59 Intake Total 900 1580 270 Output Total 0 0 0 Balance 900 1580 270 Weight 72.575 kg 73.3 kg 73.3 kg Intake: IV 600 Intake, IV Titration 300 900 150 Amount Sodium Chloride 0.9% 1, 300 900 150 000 ml In Empty Bag 1 bag @ 1 ML/KG/HR 72.575 mls/ hr IV .[id number] [facility] Rx#: [id number] Oral 0 680 Tube Feeding 120 Output: Urine 0 0 0 Other: Voiding Method Urinal Toilet Toilet # Voids 1 1 # Bowel Movements 0 - Labs CBC & Chem 7: 05/11/23 04:41 05/11/23 04:41 Labs: Abnormal Lab Results - Last 24 Hours (Table) 05/10/23 05/10/23 05/11/23 Range/Units 13:35 13:43 04:41 WBC 14.4 H (3.8-10.6) k/uL Neutrophils # 10.9 H (1.3-7.7) k/uL Chloride 114 H (98-107) mmol/L Carbon Dioxide 21 L 19 L (22-30) mmol/L Glucose 147 H (74-99) mg/dL Cholesterol 218.00 H (0.00-200.00) mg/dL LDL Cholesterol, Calc 166.7 H (0.0-131.0) mg/dL HDL Cholesterol 32.00 L (40.00-60.00) mg/dL
[2023-05-11 11:09] VITALS: BMI 23.1
[2023-05-11] MEDS: METOPROLOL TARTRATE 12.5 MG TAB PO SCH (22:23)
[2023-05-12 00:57] VITALS: RESP 16
[2023-05-12 10:03] LABS: African American GFR (CKD) >90 (>60 ml/min/1.73 sqM); Anion Gap 3 mmol/L; Blood Urea Nitrogen 13 mg/dL (9-20); Calcium 9.3 mg/dL (8.4-10.2); Carbon Dioxide 30 mmol/L (22-30); Chloride 106 mmol/L (98-107); Glucose 87 mg/dL (74-99); Non-African American GFR(CKD) >90 (>60 ml/min/1.73 sqM); Potassium 5.1 mmol/L (3.5-5.1); Sodium 139 mmol/L (137-145)
--- NOTE | 2023-05-12 11:05 | P.PN ---
Subjective Progress Note Date: 05/12/23 PROGRESS NOTE The patient is a 57-year-old male with known history of chronic tobacco use, does not follow with a physician on a regular basis who presented to the emergency room with an acute episode of chest discomfort while doing physical activity associated with dyspnea. In the emergency room he was found to have ST elevation in lead I and aVL and ST depression inferiorly. Patient has been complaining of chest discomfort on and off for the last couple months. He has no prior documented history of CAD or history of CHF. He has no prior cardiac workup. He has no documented history of hypertension, hyperlipidemia or diabetes although he has not seen a physician on a regular basis. He is a s moker but no history of alcohol intake or drug use. He denies any peripheral edema, PND or orthopnea. He has no history of arrhythmia, significant dizziness or syncope. May 10: The patient presented with an acute STEMI yesterday and was found to have severe stenosis in the diagonal branch. He underwent stenting of that vessel. He is feeling well this morning. He denies any chest discomfort, dizziness or palpitations. He is in sinus mechanism and hemodynamically stable. 05/11 Patient has been transferred to the cardiac stepdown unit. He denies having any chest pain, shortness of breath, lightheadedness or dizziness. Blood pressure 110/71, heart rate in the 52. Patient was noted to have 1 episode of complete heart block. Repeat BMP is within normal limits. Medications: Aspirin, Lipitor 80 mg daily, metoprolol 25 mg twice a day, Effient 10 mg daily PHYSICAL EXAMINATION: Blood pressure 103/80 heart rate 60 LUNGS: Clear to auscultation HEART: Regular rate and rhythm, S1, S2. No S3. No systolic murmur ABDOMEN: Soft, nontender, no organomegaly EXTREMETIES: No edema, right radial pulse intact IMPRESSION: 1. Status post stenting of the first diagonal branch in the setting of STEMI 2. History of tobacco use 3. 1 transient episode of complete heart block PLAN: Continue aspirin Lipitor and Effient Discontinue beta-yosvany due to episode of complete heart block Patient is cleared for discharge from cardiology May follow-up with Dr. Amado in the office in 1 week. Nurse practitioner note has been reviewed, I agree with documented findings and plan of care. Patient was seen and examined. Objective - Vital Signs Vital signs: Vital Signs Temp 97.5 F L 05/12/23 08:00 Pulse 52 L 05/12/23 08:00 Resp 16 05/12/23 08:00 BP 110/76 05/12/23 08:00 Pulse Ox 96 05/12/23 08:00 FiO2 Intake & Output 05/11/23 05/12/23 05/12/23 18:59 06:59 18:59 Intake Total 270 360 Output Total 0 0 Balance 270 0 360 Weight 73.3 kg Intake: Intake, IV Titration 150 Amount Sodium Chloride 0.9% 1, 150 000 ml In Empty Bag 1 bag @ 1 ML/KG/HR 72.575 mls/ hr IV .[id number] [facility] Rx#: [id number] Oral 360 Tube Feeding 120 Output: Urine 0 0 Other: Voiding Method Toilet Toilet # Voids 1 - Labs CBC & Chem 7: 05/11/23 04:41 05/12/23 08:35 Labs: Abnormal Lab Results - Last 24 Hours (Table) 05/11/23 Range/Units 04:41 Cholesterol 218.00 H (0.00-200.00) mg/dL LDL Cholesterol, Calc 166.7 H (0.0-131.0) mg/dL HDL Cholesterol 32.00 L (40.00-60.00) mg/dL
[2023-05-12 12:54] VITALS: BP 112/72; PULSE 42; TEMP 97.8
--- NOTE | 2023-05-12 15:05 | P.DS ---
Providers Date of admission: 05/10/23 13:56 Expected date of discharge: 05/12/23 Attending physician: Lissa Dejesus DO Consults: 05/10/23 14:48 Consult Physician Routine Consulting Provider: [facility] Consult Reason/Comments: Post Interventional Patient Do you want consulting provider notified?: Already Contacted Primary care physician: [facility] Hospital Course: Discharge Diagnosis: ST segment elevated myocardial infarction status post PCI to the first diagonal Dyslipidemia LDL 166.7 Hyperchloremic metabolic acidosis Stress-induced hyperglycemia, resolved. A1c 5.7 Nicotine dependency Hospital Course: Patient is a 57-year-old male with a past medical history of migraine headaches and nicotine dependency who presented to the emergency department with chest pain. In the ER he was found to have an acute ST segment elevated myocardial infarction with ST segment elevation in lead I and aVL with reciprocal ST depression inferiorly. He was emergently seen by cardiology. He was taken to the [facility] and underwent stenting of the first diagonal branch of the LAD. He was subsequently admitted to the ICU. Initial laboratory analysis consisted of CBC, coags, and CMP all of which were unremarkable. Initial troponin in the ER was unremarkable. Chest x-ray showed no acute cardiopulmonary process. Patient was started on aspirin, Lipitor, and Effient. He underwent echocardiogram which showed preserved ejection fraction of 55% and no regional wall motion abnormalities. Unable to tolerate beta-yosvany due to low heart rate and blood pressures. He was found to have slight dyslipidemia. He continues to do well. He was asymptomatic without dizziness, chest pain, or shortness of breath. He was determined stable for discharge home. Follow-up: Dr. Amado in 1 week, establish with the [facility] in [place]. New medications include aspirin, Effient, and Lipitor. I did have andre discussion with the patient that he should not miss his aspirin or Effient or he will be at risk for in-stent thrombosis and he is aware. We discussed that he could continue to do physical activity that to not cause him to break a sweat or become short of breath, but he should wait approximately 30 days before starting a exercise regiment. Patient seen and examined at bedside. Denies any complaints currently. No chest pain, shortness of breath, lightheadedness, dizziness. Wants to go home. Vital signs reviewed and stable. General: Nontoxic, no distress, appears at stated age Cardiovascular: S1S2 reg, no murmur, positive posterior tibial pulse bilateral, Lungs: CTA bilateral, no rhonchi, no rales, no accessory muscle use Abdominal: Soft, nontender to palpation, no guarding, no appreciable organomegaly Ext: No gross muscle atrophy, no edema b/l lower extremities, no contractures Neuro: CN II-XI grossly intact, no focal neuro deficits Psych: Alert, oriented, appropriate affect A total of 42 minutes of time were spent preparing this complex discharge summary. Patient was discharged on 05/12/2023. This dictation was prepared using [employer] voice recognition software. Though every attempt is made to correct errors during dictation some may still exist. Plan - Discharge Summary Discharge Rx Participant: Yes New Discharge Prescriptions: New Aspirin 81 mg PO DAILY #30 tab Prasugrel [Effient] 10 mg PO DAILY #30 tab Atorvastatin [Lipitor] 80 mg PO HS #30 tab No Action Aspirin EC [Ecotrin] 650 mg PO ONCE Discharge Medication List Aspirin EC [Ecotrin] 650 mg PO ONCE 05/10/23 [History] Aspirin 81 mg PO DAILY #30 tab 05/12/23 [Rx] Atorvastatin [Lipitor] 80 mg PO HS #30 tab 05/12/23 [Rx] Prasugrel [Effient] 10 mg PO DAILY #30 tab 05/12/23 [Rx] Follow up Appointment(s)/Referral(s): Edwar Amado MD [STAFF PHYSICIAN] - 1 Week (Dr Amado's office will call you with your appointment ) [facility] [Primary Care Provider] - 1-2 days (please make your appointment patrice) Patient Instructions/Handouts: *Surgery [facility] - After Heart Catheterization - [facility] [facility] Instructions, Heart Attack (DC), How to Stop Smoking (DC), Mediterranean Diet (DC) Activity/Diet/Wound Care/Special Instructions: Activity: As tolerated Diet: Heart Healthy Special Instructions: Obtain a Blood pressure cuff so that you can check blood pressure and pulse once daily and make a list of these to bring to your cardiology appointment Discharge Disposition: HOME SELF-CARE
== END 2023-05-12 17:17 | disposition home or self-care (01) | DRG 322 ==
LOC: EC 13:18 → 2SICU 13:56 → 3SCARD 05-11 20:46
PROVIDERS: ADMIT Internal Medicine; ATTEND Internal Medicine
PROC: B240ZZ3 Ultrasonography of Single Coronary Artery, Intravascular (ICD-10-PCS; 2023-05-10)
PROC: 0270346 Dilation of Coronary Artery, One Artery, Bifurcation, with Drug-eluting Intraluminal Device, Percutaneous Approach (ICD-10-PCS; principal; 2023-05-10 13:34)
PROC: 4A023N7 Measurement of Cardiac Sampling and Pressure, Left Heart, Percutaneous Approach (ICD-10-PCS; 2023-05-10 13:34)
PROC: B2111ZZ Fluoroscopy of Multiple Coronary Arteries using Low Osmolar Contrast (ICD-10-PCS; 2023-05-10 13:34)
DX: I21.3 ST elevation (STEMI) myocardial infarction of unspecified site (principal); E87.20 Acidosis, unspecified; I44.2 Atrioventricular block, complete; F17.210 Nicotine dependence, cigarettes, uncomplicated; G43.909 Migraine, unspecified, not intractable, without status migrainosus; E87.8 Other disorders of electrolyte and fluid balance, not elsewhere classified; Z79.899 Other long term (current) drug therapy; Z98.61 Coronary angioplasty status; Z79.82 Long term (current) use of aspirin; Z79.02 Long term (current) use of antithrombotics/antiplatelets; E78.5 Hyperlipidemia, unspecified; F32.A Depression, unspecified; F41.9 Anxiety disorder, unspecified; I07.1 Rheumatic tricuspid insufficiency; I25.2 Old myocardial infarction; Z82.49 Family history of ischemic heart disease and other diseases of the circulatory system; Z71.6 Tobacco abuse counseling
CPT/HCPCS: 36415; 71045; 80048; 80053; 80061; 83036; 83735; 84484; 85025; 85610; 85730; 92978; 93005; 93306; 93458; 94760; 96374; 99291

== ENCOUNTER 2024-01-26 11:17 | Emergency (ER) | payer OTHER ==
[2024-01-26] MEDS: PROPARACAINE 0.5% OPHTH DROPS 15 ML BTL RIGHT EYE STA (11:42)
[2024-01-26] MEDS: FLUORESCEIN STRIPS 1 MG STRIP RIGHT EYE ONE (11:42)
--- NOTE | 2024-01-26 11:42 | ED ---
General Adult HPI - General Chief complaint: Eye Problems Stated complaint: Object in right eye Time Seen by Provider: 01/26/24 11:22 Source: patient, RN notes reviewed Mode of arrival: ambulatory Limitations: no limitations - History of Present Illness Initial comments: 58-year-old male presents to the emergency department for evaluation of possible right eye foreign body. Patient reports that he was grinding metal last night and noticed some irritation to his right eye. He notes that this has gotten worse today. He does report some blurry vision in the right eye. Patient states that he attempted to remove this with water and his finger. He does report having a tetanus shot within the past 5 years. - Related Data Home Medications Medication Instructions Recorded Confirmed Aspirin EC [Ecotrin] 650 mg PO ONCE 05/10/23 05/10/23 Previous Rx's Medication Instructions Recorded Aspirin 81 mg PO DAILY #30 tab 05/12/23 Atorvastatin [Lipitor] 80 mg PO HS #30 tab 05/12/23 Prasugrel [Effient] 10 mg PO DAILY #30 tab 05/12/23 Allergies Allergy/AdvReac Type Severity Reaction Status Date / Time No Known Allergies Allergy Verified 05/10/23 18:58 Review of Systems ROS Statement: Those systems with pertinent positive or pertinent negative responses have been documented in the HPI. ROS Other: All systems not noted in ROS Statement are negative. Past Medical History Past Medical History: Coronary Artery Disease (CAD), Chest Pain / Angina, Hyperlipidemia, Hypertension, Myocardial Infarction (PR) Additional Past Medical History / Comment(s): migraines, multiple broken bones History of Any Multi-Drug Resistant Organisms: None Reported Past Surgical History: Heart Catheterization With Stent Past Anesthesia/Blood Transfusion Reactions: No Reported Reaction Date of Last Stent Placement:: 05/10/23 Past Psychological History: Anxiety, Panic Disorder Smoking Status: Current every day smoker Past Alcohol Use History: None Reported Past Drug Use History: None Reported - Past Family History Father Family Medical History: Chest Pain / Angina, Coronary Artery Disease (CAD), Hyperlipidemia, Myocardial Infarction (PR) Additional Family Medical History / Comment(s): History of CABG x4. Mother Family Medical History: CVA/TIA, Myocardial Infarction (PR) General Exam Limitations: no limitations General appearance: alert, in no apparent distress Course Vital Signs 01/26/24 11:18 Temperature 97.6 F Pulse Rate 65 Respiratory 16 Rate Blood Pressure 122/79 O2 Sat by Pulse 96 Oximetry Medical Decision Making - Medical Decision Making Was pt. sent in by a medical professional or institution (NATALIE Sanford, CONSUMER SERVICES ADVISOR, urgent care, hospital, or assisted...) When possible be specific @ -[No] Did you speak to anyone other than the patient for history (EMS, parent, family, police, friend...)? What history was obtained from this source @ -[No] Did you review nursing and triage notes (agree or disagree)? Why? @ -[I reviewed and agree with nursing and triage notes] Were old charts reviewed (outside hosp., previous admission, EMS record, old EKG, old radiological studies, urgent care reports/EKG's, assisted records)? Report findings @ -[No old charts were reviewed] Differential Diagnosis (chest pain, altered mental status, abdominal pain women, abdominal pain men, vaginal bleeding, weakness, fever, dyspnea, syncope, headache, dizziness, GI bleed, back pain, seizure, CVA, palpatations, mental health, musculoskeletal)? @ -[Foreign body, corneal abrasion, ] EKG interpreted by me (3pts min.). @ -[As above] X-rays interpreted by me (1pt min.). @ -[None done] CT interpreted by me (1pt min.). @ -[None done] U/S interpreted by me (1pt. min.). @ -[None done] What testing was considered but not performed or refused? (CT, X-rays, U/S, labs)? Why? @ -[None] What meds were considered but not given or refused? Why? @ -[None] Did you discuss the management of the patient with other professionals (professionals i.e. NATALIE Sanford, CONSUMER SERVICES ADVISOR, lab, RT, psych nurse, social welfare clerk, rn baby, teacher, parking officer, ed case manager)? Give summary @ -[No] Was smoking cessation discussed for >3mins.? @ -[No] Was critical care preformed (if so, how long)? @ -[No] Were there social determinants of health that impacted care today? How? (Homelessness, low income, unemployed, alcoholism, drug addiction, transportation, low edu. Level, literacy, decrease access to med. care, correction, rehab)? @ -[No] Was there de-escalation of care discussed even if they declined (Discuss DNR or withdrawal of care, Hospice)? DNR status @ -[No] What co-morbidities impacted this encounter? (DM, HTN, Smoking, COPD, CAD, Cancer, CVA, ARF, Chemo, Hep., AIDS, mental health diagnosis, sleep apnea, morbid obesity)? @ -[None] Was patient admitted / discharged? Hospital course, mention meds given and route, prescriptions, significant lab abnormalities, going to OR and other pertinent info. @ -[hospital course] Undiagnosed new problem with uncertain prognosis? @ -[No] Drug Therapy requiring intensive monitoring for toxicity (Heparin, Nitro, Insulin, Cardizem)? @ -[No] Were any procedures done? @ -[No] Diagnosis/symptom? @ -[default] Acute, or Chronic, or Acute on Chronic? @ -[default] Uncomplicated (without systemic symptoms) or Complicated (systemic symptoms)? @ -[default] Side effects of treatment? @ -[No] Exacerbation, Progression, or Severe Exacerbation? @ -[No] Poses a threat to life or bodily function? How? (Chest pain, USA, PR, pneumonia, PE, COPD, DKA, ARF, appy, cholecystitis, CVA, Diverticulitis, Homicidal, Suicidal, threat to staff... and all critical care pts) @ -[No] Disposition Clinical Impression: Corneal foreign body Disposition: HOME SELF-CARE Condition: Stable Instructions (If sedation given, give patient instructions): Eye Foreign Body (ED) Additional Instructions: Please use 2 ciprofloxacin eye drops every 6 hours. You may use 1 ketorolac eye drop every 6-8 hours as needed for discomfort. Follow up with the client services director. Return to the emergency department for new or worsening symptoms. Is patient prescribed a controlled substance at d/c from ED?: No Referrals: [facility] [Primary Care Provider] - 1-2 days Pete Wing MD [STAFF PHYSICIAN] - 1-2 days Chance Nicholson MD [STAFF PHYSICIAN] - 1-2 days Lyn Linda MD [STAFF PHYSICIAN] - 1-2 days
[2024-01-26 13:25] VITALS: RESP 18
[2024-01-26] MEDS: KETOROLAC 0.5% OPHTH DROPS 5 ML BTL RIGHT EYE STA (13:25)
--- NOTE | 2024-01-26 13:55 | CT ---
EXAMINATION TYPE: CT orbits wo con DATE OF EXAM: 01/26/2024 1:43 PM COMPARISON: . CLINICAL INDICATION: Male, 58 years old with history of FB right eye; PHH, FB right eye TECHNIQUE: Orbits: Axial CT with coronal and sagittal reformats through the orbits. No IV or oral contrast was u tilized. CT DLP: 264.5 mGycm, Automated exposure control for dose reduction was used. Findings: Orbital Contents: * Globes: Normal. * Preseptal Tissues: Normal. * Intraconal Structures: Normal. * Extraconal Structures and Lacrimal Glands: Normal. * Orbital S[place]uma: Normal. Sella Turcica and Cavernous Sinuses: The sella turcica and cavernous sinus regions are intact and sym metric. Visualized Brain Parenchyma: Normal. Paranasal Sinuses and Surrounding Structures: The paranasal sinuses are intact. The mastoid air cells and skull base is intact. Musculoskeletal: No evidence of fracture. Other: No radiopaque foreign body visualized. Mild soft tissue swelling around the right orbit. IMPRESSION: 1. No radiopaque foreign body 2. No evidence of orbital irregularity or mass. [facility], , 01/26/2024 1:53 PM
[2024-01-26] MEDS: CIPROFLOXACIN 0.3% OPHTH SOLN 5 ML BTL RIGHT EYE STA (14:00)
[2024-01-26 14:31] VITALS: BP 111/88; PULSE 55; TEMP 98.1
== END 2024-01-26 14:31 | disposition home or self-care (01) ==
LOC: EC 11:17
DX: T15.01XA Foreign body in cornea, right eye, initial encounter (principal); F17.200 Nicotine dependence, unspecified, uncomplicated; W44.9XXA Unspecified foreign body entering into or through a natural orifice, initial encounter
CPT/HCPCS: 70480; 99284

== ENCOUNTER 2024-02-12 10:50 | Emergency (ER) | payer OTHER ==
[2024-02-12 11:07] VITALS: TEMP 97.6
--- NOTE | 2024-02-12 11:42 | ED ---
General Adult HPI - General Chief complaint: Head Injury Stated complaint: Hit Head/Steel Time Seen by Provider: 02/12/24 11:15 Source: patient Mode of arrival: wheelchair Limitations: no limitations - History of Present Illness Initial comments: Dictation was produced using [employer] dictation software. please excuse any grammatical, word or spelling errors. Chief Complaint: 58-year-old male presents with head injury History of Present Illness: Patient is a 58-year-old male yesterday afternoon he was working when he stood up and struck the top of his head on a metal scaffolding. Patient complains of headache. Denies any dizziness. Does complain of some mild neck pain. Denies any extremity issues. No vomiting. No scalp laceration. Patient takes anticoagulation medications. The ROS documented in this emergency department record has been reviewed and confirmed by me. Those systems with pertinent positive or negative responses have been documented in the HPI. All other systems are other negative and/or noncontributory. - Related Data Home Medications Medication Instructions Recorded Confirmed Aspirin EC [Ecotrin] 650 mg PO ONCE 05/10/23 05/10/23 Previous Rx's Medication Instructions Recorded Aspirin 81 mg PO DAILY #30 tab 05/12/23 Atorvastatin [Lipitor] 80 mg PO HS #30 tab 05/12/23 Prasugrel [Effient] 10 mg PO DAILY #30 tab 05/12/23 Allergies Allergy/AdvReac Type Severity Reaction Status Date / Time No Known Allergies Allergy Verified 02/12/24 10:58 Review of Systems ROS Statement: Those systems with pertinent positive or pertinent negative responses have been documented in the HPI. ROS Other: All systems not noted in ROS Statement are negative. Past Medical History Past Medical History: Coronary Artery Disease (CAD), Chest Pain / Angina, Hyperlipidemia, Hypertension, Myocardial Infarction ([place]) Additional Past Medical History / Comment(s): migraines, multiple broken bones History of Any Multi-Drug Resistant Organisms: None Reported Past Surgical History: Heart Catheterization With Stent Past Anesthesia/Blood Transfusion Reactions: No Reported Reaction Date of Last Stent Placement:: 05/10/23 Past Psychological History: Anxiety, Panic Disorder Smoking Status: Former smoker Past Alcohol Use History: None Reported Past Drug Use History: None Reported - Past Family History Father Family Medical History: Chest Pain / Angina, Coronary Artery Disease (CAD), Hyperlipidemia, Myocardial Infarction ([place]) Additional Family Medical History / Comment(s): History of CABG x4. Mother Family Medical History: CVA/TIA, Myocardial Infarction ([place]) General Exam - General Exam Comments Initial Comments: PHYSICAL EXAM: General Impression: Alert and oriented x3, not in acute distress HEENT: Normocephalic atraumatic, palpatory tenderness to the vertex , extra- ocular movements intact, pupils equal and reactive to light bilaterally, mucous membranes moist. Cardiovascular: Heart regular rate and rhythm Chest: Able to complete full sentences, no retractions, no tachypnea Abdomen: abdomen soft, non-tender, non-distended, no organomegaly Musculoskeletal: Pulses present and equal in all extremities, no peripheral edema Motor: no focal deficits noted Neurological: CN II-XII grossly intact, no focal motor or sensory deficits noted Skin: Intact with no visualized rashes Psych: Normal affect and mood Limitations: no limitations Course Vital Signs 02/12/24 10:59 Temperature 97.6 F Pulse Rate 98 Respiratory 18 Rate Blood Pressure 125/83 O2 Sat by Pulse 95 Oximetry Medical Decision Making - Medical Decision Making Was pt. sent in by a medical professional or institution (, PA, BISCUIT FACTORY WORKER, urgent care, hospital, or intermediate...) When possible be specific @ -No Did you speak to anyone other than the patient for history (EMS, parent, family, police, friend...)? What history was obtained from this source @ -No Did you review nursing and triage notes (agree or disagree)? Why? @ -I reviewed and agree with nursing and triage notes Were old charts reviewed (outside hosp., previous admission, EMS record, old EKG, old radiological studies, urgent care reports/EKG's, intermediate records)? Report findings @ -No old charts were reviewed Differential Diagnosis (chest pain, altered mental status, abdominal pain women, abdominal pain men, vaginal bleeding, musculoskeletal, weakness, fever, dyspnea, syncope, headache, dizziness, GI bleed, back pain, seizure, CVA, palpatations, mental health)? @ -Cervical fracture, skull fracture, closed head injury EKG interpreted by me (3pts min.). @ -None done X-rays interpreted by me (1pt min.). @ -None done CT interpreted by me (1pt min.). @ -CT brain and C-spine shows no acute processes U/S interpreted by me (1pt. min.). @ -None done What testing was considered but not performed or refused? (CT, X-rays, U/S, labs)? Why? @ -None What meds were considered but not given or refused? Why? @ -None Was smoking cessation discussed for >3mins.? @ -No Were there social determinants of health that impacted care today? How? (Homelessness, low income, unemployed, alcoholism, drug addiction, transportation, low edu. Level, literacy, decrease access to med. care, assisted, rehab)? @ -No Was there de-escalation of care discussed even if they declined (Discuss DNR or withdrawal of care, Hospice)? DNR status @ -No What co-morbidities impacted this encounter? (DM, HTN, Smoking, COPD, CAD, Cancer, CVA, ARF, Chemo, Hep., AIDS, mental health diagnosis, sleep apnea, morbid obesity)? @ -None Was patient admitted / discharged? Hospital course, mention meds given and route, prescriptions, significant lab abnormalities, going to OR and other pertinent info. @ -58-year-old male presents with head injury. Vital signs stable. Patient well-appearing. Head grossly atraumatic however he does have some palpatory tenderness to the vertex of his head. CT brain and C-spine shows no acute processes. Patient given analgesics. Patient discharged. Did you discuss the management of the patient with other professionals (professionals i.e. , PA, BISCUIT FACTORY WORKER, lab, RT, psych nurse, healthcare social worker, plant production worker, teacher, driver license reviewing officer, skilled nursing case manager)? Give summary @ -No Was critical care preformed (if so, how long)? @ -No Undiagnosed new problem with uncertain prognosis? @ -No Drug Therapy requiring intensive monitoring for toxicity (Heparin, Nitro, Insulin, Cardizem)? @ -No Were any procedures done? @ -No Diagnosis/symptom? Acute, or Chronic, or Acute on Chronic? Uncomplicated (without systemic symptoms) or Complicated (systemic symptoms)? @ -Closed head injury Side effects of treatment? @ -No Exacerbation, Progression, or Severe Exacerbation? @ -No Poses a threat to life or bodily function? How? (Chest pain, [place], [place], pneumonia, PE, COPD, DKA, ARF, appy, cholecystitis, CVA, Diverticulitis, Homicidal, Suicidal, threat to staff... and all critical care pts) @ -No Disposition Clinical Impression: Closed head injury Disposition: HOME SELF-CARE Condition: Good Instructions (If sedation given, give patient instructions): Head Injury (ED) Is patient prescribed a controlled substance at d/c from ED?: No Referrals: None,Stated [Primary Care Provider] - 1-2 days Time of Disposition: 13:27
[2024-02-12] MEDS: HYDROcodone/APAP 5-325MG 1 EACH TAB PO STA (11:44)
--- NOTE | 2024-02-12 12:38 | CT ---
EXAMINATION TYPE: CT brain cspine wo con DATE OF EXAM: 02/12/2024 12:14 PM COMPARISON: None. CLINICAL INDICATION: Male, 58 years old with history of head injury; HIT TOP OF HEAD pain TECHNIQUE: Brain: Multiple axial CT images of the brain were obtained without IV contrast. Cspine: Axial CT images from the skull base to the inferior aspect of T2 we obtained without intraven ous contrast. Coronal and sagittal reformatted images were also reviewed. . CT DLP: 1216.4 mGycm, Automated exposure control for dose reduction was used. FINDINGS: Brain: Extra-axial spaces: No abnormal extra-axial fluid collections. Ventricular system: Within normal limits Cerebral parenchyma: No acute intraparenchymal hemorrhage or mass effect. The valladares-white junction is well differentiated. Cerebellum: Unremarkable. Mass effect: No evidence of midline shift. Intracranial vasculature: unremarkable Soft tissues: Normal. Calvarium/osseous structures: No depressed skull fracture. Paranasal sinuses and mastoid air cells: Clear. Visualized orbits: Orbital contents are intact. Cervical spine: Fracture: None. Osseous structures: Unremarkable Vertebral alignment: Within normal limits. Spinal canal/Neural Foramina: No evidence of significant spinal canal narrowing. No evidence for sign ificant neural foraminal stenosis. Neck soft tissues: Prevertebral soft tissues are within normal limits. Other: The airway is patent. The lung apices are clear. IMPRESSION: 1. No acute intracranial process. 2. No evidence of cervical spine fracture. 3. Mild multilevel degenerative disc disease. [facility], , 02/12/2024 12:36 PM
[2024-02-12 14:16] VITALS: BP 120/83; PULSE 63; RESP 20
== END 2024-02-12 14:16 | disposition home or self-care (01) ==
LOC: EC 10:50
DX: Z87.891 Personal history of nicotine dependence (principal); W22.8XXA Striking against or struck by other objects, initial encounter; Y99.0 Civilian activity done for income or pay
CPT/HCPCS: 70450; 72125; 99284

== ENCOUNTER 2024-06-09 13:13 | Inpatient (IN) | payer OTHER ==
--- NOTE | 2024-06-09 13:26 | ED ---
General Adult HPI - General Stated complaint: Nose Bleed Time Seen by Provider: 06/09/24 13:15 - History of Present Illness Initial comments: Dictation was produced using [employer] dictation software. please excuse any grammatical, word or spelling errors. Chief Complaint: 59-year-old male with epistaxis History of Present Illness: Patient is 51-year-old male presents to the emergency department with epistaxis x 40 minutes. Brought in by EMS. EMS states that there was significant bleeding with estimation of approximately 300 cc of loss of blood. Patient is on anticoagulation medication for A-fib. EMS states that patient had 2 syncopal episodes en route to the ER. The ROS documented in this emergency department record has been reviewed and confirmed by me. Those systems with pertinent positive or negative responses have been documented in the HPI. All other systems are other negative and/or noncontributory. - Related Data Home Medications Medication Instructions Recorded Confirmed Atorvastatin [Lipitor] 80 mg PO DAILY 06/09/24 06/09/24 Previous Rx's Medication Instructions Recorded Aspirin 81 mg PO DAILY #30 tab 05/12/23 Prasugrel [Effient] 10 mg PO DAILY #30 tab 05/12/23 Allergies Allergy/AdvReac Type Severity Reaction Status Date / Time No Known Allergies Allergy Verified 06/09/24 13:23 Review of Systems ROS Statement: Those systems with pertinent positive or pertinent negative responses have been documented in the HPI. ROS Other: All systems not noted in ROS Statement are negative. Past Medical History Past Medical History: Coronary Artery Disease (CAD), Chest Pain / Angina, Hyperlipidemia, Hypertension, Myocardial Infarction ([place]) Additional Past Medical History / Comment(s): migraines, multiple broken bones History of Any Multi-Drug Resistant Organisms: None Reported Past Surgical History: Heart Catheterization With Stent Past Anesthesia/Blood Transfusion Reactions: No Reported Reaction Date of Last Stent Placement:: 05/10/23 Past Psychological History: Anxiety, Panic Disorder Smoking Status: Former smoker Past Alcohol Use History: None Reported Past Drug Use History: None Reported - Past Family History Father Family Medical History: Chest Pain / Angina, Coronary Artery Disease (CAD), Hyperlipidemia, Myocardial Infarction ([place]) Additional Family Medical History / Comment(s): History of CABG x4. Mother Family Medical History: CVA/TIA, Myocardial Infarction ([place]) General Exam - General Exam Comments Initial Comments: General: Well-appearing, nontoxic, no acute distress. Head: Normocephalic, atraumatic Eyes: PERRLA, EOMI ENT: Airway patent, dried blood around the mouth and naris, no active bleeding Chest: Nonlabored breathing Skin: No visual rash, normal skin tone Neuro: Alert and oriented 3 Musculoskeletal: No gross abnormalities Course Vital Signs 06/09/24 06/09/24 06/09/24 13:19 13:40 13:47 Temperature 97.7 F Pulse Rate 63 60 64 Respiratory 18 18 Rate Blood Pressure 95/84 83/61 O2 Sat by Pulse 95 99 Oximetry 06/09/24 06/09/24 06/09/24 13:55 14:01 14:17 Temperature Pulse Rate 63 64 60 Respiratory 16 18 Rate Blood Pressure 108/75 107/67 O2 Sat by Pulse 100 95 Oximetry 06/09/24 06/09/24 06/09/24 14:41 15:25 16:26 Temperature Pulse Rate 78 79 75 Respiratory 16 18 18 Rate Blood Pressure 110/96 139/88 133/94 O2 Sat by Pulse 98 99 98 Oximetry - Reevaluation(s) Reevaluation #1: 06/09/24 14:01 Patient is patient's epistaxis was initially controlled however in the ER his right naris began bleeding. Patient's nose was packed with rapid Rhino. EKG Findings - EKG Comments: EKG Findings:: My EKG interpretation: Ventricular rate 1, sinus rhythm,. 173, QRS 81, QTc 444. No MI prolongation, no QTC prolongation, no ST or T-wave changes noted. Overall, this EKG is unremarkable Medical Decision Making - Medical Decision Making Was pt. sent in by a medical professional or institution (, PA, SURGICAL SALES REPRESENTATIVE, urgent care, hospital, or prison...) When possible be specific @ -No Did you speak to anyone other than the patient for history (EMS, parent, family, police, friend...)? What history was obtained from this source @ -No Did you review nursing and triage notes (agree or disagree)? Why? @ -I reviewed and agree with nursing and triage notes Were old charts reviewed (outside hosp., previous admission, EMS record, old EKG, old radiological studies, urgent care reports/EKG's, prison records)? Report findings @ -No old charts were reviewed Differential Diagnosis (chest pain, altered mental status, abdominal pain women, abdominal pain men, vaginal bleeding, musculoskeletal, weakness, fever, dyspnea, syncope, headache, dizziness, GI bleed, back pain, seizure, CVA, palpatations, mental health)? @ -Differential GI Bleed: Esophageal varices, aortoenteric fistula, Ema-Evangelista, gastritis, peptic ulcer disease, diverticulosis, inflammatory bowel disease, hemorrhoids, fissure, colitis, malignancy, Meckel's diverticulum, this is not meant to be an all- inclusive list. EKG interpreted by me (3pts min.). @ -Above X-rays interpreted by me (1pt min.). @ -None done CT interpreted by me (1pt min.). @ -None done U/S interpreted by me (1pt. min.). @ -None done What testing was considered but not performed or refused? (CT, X-rays, U/S, labs)? Why? @ -None What meds were considered but not given or refused? Why? @ -None Was smoking cessation discussed for >3mins.? @ -No Were there social determinants of health that impacted care today? How? (Homelessness, low income, unemployed, alcoholism, drug addiction, worthy sportation, low edu. Level, literacy, decrease access to med. care, intermediate, rehab)? @ -No Was there de-escalation of care discussed even if they declined (Discuss DNR or withdrawal of care, Hospice)? DNR status @ -No What co-morbidities impacted this encounter? (DM, HTN, Smoking, COPD, CAD, Cancer, CVA, ARF, Chemo, Hep., AIDS, mental health diagnosis, sleep apnea, morbid obesity)? @ -Anticoagulation use Was patient admitted / discharged? Hospital course, mention meds given and route, prescriptions, significant lab abnormalities, going to OR and other pertinent info. @ -51-year-old male presents initially with epistaxis. Hemorrhage control was initially attempted with rapid Rhino. Patient still began to bleed. Rapid Rhino was removed patient had a Merisel that was placed deep with control of epistaxis. Patient had large volume hematemesis. Unclear if there is a associated GI bleed versus if patient had swallowed blood. Vital signs however are stable. Labs are unremarkable. Patient has cardiac history and had some syncopal episodes. Case discussed with hospitalist along with general surgery who are agreeable with admission despite no GI coverage or ENT coverage Did you discuss the management of the patient with other professionals (professionals i.e. , PA, SURGICAL SALES REPRESENTATIVE, lab, RT, psych nurse, social work job titles, joint terminal attack controller, teacher, security patrol officer, porter sample case)? Give summary @ -Above Was critical care preformed (if so, how long)? @ -No Undiagnosed new problem with uncertain prognosis? @ -No Drug Therapy requiring intensive monitoring for toxicity (Heparin, Nitro, Insulin, Cardizem)? @ -No Were any procedures done? @ -No Diagnosis/symptom? Acute, or Chronic, or Acute on Chronic? Uncomplicated (without systemic symptoms) or Complicated (systemic symptoms)? @ -Epistaxis, syncope, GI bleed Side effects of treatment? @ -No Exacerbation, Progression, or Severe Exacerbation? @ -No Poses a threat to life or bodily function? How? (Chest pain, [place], [place], pneumonia, PE, COPD, DKA, ARF, appy, cholecystitis, CVA, Diverticulitis, Homicidal, Suicidal, threat to staff... and all critical care pts) @ -yes - Lab Data Result diagrams: 06/09/24 13:29 06/09/24 13:29 Lab Results 06/09/24 06/09/24 06/09/24 Range/Units 13:22 13:28 13:29 WBC 8.43 (4.50-10.00) 10*3/uL RBC 4.88 (4.40-5.60) 10*6/uL Hgb 15.8 (13.0-17.0) g/dL Hct 44.7 (39.6-50.0) % MCV 91.6 (80.0-97.0) fL MCH 32.4 H (27.0-32.0) pg MCHC 35.3 (32.0-37.0) g/dL Plt Count 348 (140-440) 10*3/uL MPV 8.9 L (9.5-12.2) fL Immature Gran % (Auto) 0.2 % Neutrophils % 46.3 % Lymphocytes % 40.6 % Monocytes % 6.5 % Eosinophils % 5.6 % Basophils % 0.8 % Immature Gran # 0.02 (0.00-0.04) 10*3/uL Neutrophils # 3.90 (1.80-7.70) 10*3/uL Lymphocytes # 3.42 (0.90-5.00) 10*3/uL Monocytes # 0.55 (0.20-1.00) 10*3/uL Eosinophils # 0.47 H (0.04-0.35) 10*3/uL Basophils # 0.07 (0.00-0.10) 10*3/uL PT (10.0-12.5) sec INR (<1.2) APTT (22.0-30.0) sec Sodium (137-145) mmol/L Potassium (3.5-5.1) mmol/L Chloride (98-107) mmol/L Carbon Dioxide (22-30) mmol/L Anion Gap mmol/L BUN (9-20) mg/dL Creatinine (0.66-1.25) mg/dL Est GFR (CKD-EPI)AfAm (>60 ml/min/1.73 sqM) Est GFR (CKD-EPI)NonAf (>60 ml/min/1.73 sqM) Glucose (74-99) mg/dL Calcium (8.4-10.2) mg/dL Troponin I <0.012 (0.000-0.034) ng/mL Blood Type Blood Type Confirm B Negative Blood Type Recheck Bld Type Recheck Status Antibody Screen Spec Expiration Date 06/09/24 06/09/24 06/09/24 Range/Units 13:29 13:29 13:29 WBC (4.50-10.00) 10*3/uL RBC (4.40-5.60) 10*6/uL Hgb (13.0-17.0) g/dL Hct (39.6-50.0) % MCV (80.0-97.0) fL MCH (27.0-32.0) pg MCHC (32.0-37.0) g/dL Plt Count (140-440) 10*3/uL MPV (9.5-12.2) fL Immature Gran % (Auto) % Neutrophils % % Lymphocytes % % Monocytes % % Eosinophils % % Basophils % % Immature Gran # (0.00-0.04) 10*3/uL Neutrophils # (1.80-7.70) 10*3/uL Lymphocytes # (0.90-5.00) 10*3/uL Monocytes # (0.20-1.00) 10*3/uL Eosinophils # (0.04-0.35) 10*3/uL Basophils # (0.00-0.10) 10*3/uL PT 10.5 (10.0-12.5) sec INR 0.9 (<1.2) APTT 18.4 L (22.0-30.0) sec Sodium 137 (137-145) mmol/L Potassium 3.6 (3.5-5.1) mmol/L Chloride 105 (98-107) mmol/L Carbon Dioxide 23 (22-30) mmol/L Anion Gap 9 mmol/L BUN 12 (9-20) mg/dL Creatinine 0.90 (0.66-1.25) mg/dL Est GFR (CKD-EPI)AfAm >90 (>60 ml/min/1.73 sqM) Est GFR (CKD-EPI)NonAf >90 (>60 ml/min/1.73 sqM) Glucose 132 H (74-99) mg/dL Calcium 9.3 (8.4-10.2) mg/dL Troponin I (0.000-0.034) ng/mL Blood Type B Negative Blood Type Confirm Blood Type Recheck No Previous Record Bld Type Recheck Status CABO Indicated Antibody Screen NEGATIVE Spec Expiration Date 06/12/20242328 Disposition Clinical Impression: Epistaxis Disposition: ADMITTED IP TO THIS [facility] Condition: Fair Referrals: Nonstaff,Physician [Primary Care Provider] - 1-2 days Decision Time: 17:29
[2024-06-09] MEDS: TRANEXAMIC ACID 1,000 MG/10 ML VIAL INHALATION STA (13:33)
[2024-06-09 13:44] LABS: Basophils # (A) 0.07 10*3/uL (0.00-0.10); Basophils % (A) 0.8 %; Eosinophils # (A) 0.47 10*3/uL (0.04-0.35); Eosinophils % (A) 5.6 %; HCT 44.7 % (39.6-50.0); HGB 15.8 g/dL (13.0-17.0); Lymphocytes # (A) 3.42 10*3/uL (0.90-5.00); Lymphocytes % (A) 40.6 %; MCH 32.4 pg (27.0-32.0); MCHC 35.3 g/dL (32.0-37.0); MCV 91.6 fL (80.0-97.0); Mean Platelet Volume 8.9 fL (9.5-12.2); Monocytes # (A) 0.55 10*3/uL (0.20-1.00); Monocytes % (A) 6.5 %; Neutrophils % (A) 46.3 %; Platelet Count 348 10*3/uL (140-440); RBC 4.88 10*6/uL (4.40-5.60); RDW 11.9 % (11.5-14.5); WBC 8.43 10*3/uL (4.50-10.00)
[2024-06-09 14:01] LABS: African American GFR (CKD) >90 (>60 ml/min/1.73 sqM); Anion Gap 9 mmol/L; Blood Urea Nitrogen 12 mg/dL (9-20); Calcium 9.3 mg/dL (8.4-10.2); Carbon Dioxide 23 mmol/L (22-30); Chloride 105 mmol/L (98-107); Glucose 132 mg/dL (74-99); INR 0.9 (<1.2); Non-African American GFR(CKD) >90 (>60 ml/min/1.73 sqM); Potassium 3.6 mmol/L (3.5-5.1); Prothrombin Time 10.5 sec (10.0-12.5); Sodium 137 mmol/L (137-145)
[2024-06-09 14:08] LABS: Partial Thromboplastin Time 18.4 sec (22.0-30.0)
[2024-06-09] MEDS: ONDANSETRON 4 MG/2 ML VIAL IVP STA (14:36)
[2024-06-09] MEDS: PANTOPRAZOLE 40 MG/10 ML VIAL IVP STA (14:37)
[2024-06-09] MEDS: SODIUM CHLORIDE 0.9% 1,000 ML IV ONE (14:37)
[2024-06-09] MEDS ORDERED: NALOXONE 0.4 MG/ML 1 ML VIAL IV PRN (17:25)
[2024-06-09] MEDS: AMOXIC-POT CLAV 875-125MG 1 EACH TAB PO SCH (17:55)
[2024-06-09] MEDS: SODIUM CHLORIDE 0.9% 1,000 ML IV SCH (17:55)
--- NOTE | 2024-06-09 20:26 | P.HPIM ---
History of Present Illness H&P Date: 06/09/24 Chief Complaint: Nosebleed 51-year-old male presents to the emergency department with epistaxis x 40 minutes. Brought in by EMS. EMS states that there was significant bleeding with estimation of approximately 300 cc of loss of blood. Patient is on a nticoagulation medication for A-fib. EMS states that patient had 2 syncopal episodes en route to the ER. Patient reports episodes of hematemesis also; medication review reveals patient is on aspirin, Effient and Lipitor In the ED hemorrhage control was initially attempted with rapid Rhino. Patient continued to bleed and rapid Rhino was removed patient had a Merisel that was placed deep with control of epistaxis. Patient had large volume hematemesis. Unclear if there is a associated GI bleed versus if patient had swallowed blood. -- At the time of my examination patient has nasal packing in place but continues to have significant amount of bleeding; ice and pressure remains in place - Will order 1 dose of IV TXA Review of Systems REVIEW OF SYSTEMS: CONSTITUTIONAL: No fever, no malaise, no fatigue. HEENT: No recent visual problems or hearing problems. Denied any sore throat. CARDIOVASCULAR: No chest pain, orthopnea, PND, no palpitations, no syncope. PULMONARY: No shortness of breath, no cough, no hemoptysis. GASTROINTESTINAL: No diarrhea, no nausea, no vomiting, no abdominal pain. NEUROLOGICAL: No headaches, no weakness, no numbness. HEMATOLOGICAL: Denies any bleeding or petechiae. GENITOURINARY: Denies any burning micturition, frequency, or urgency. MUSCULOSKELETAL/RHEUMATOLOGICAL: Denies any joint pain, swelling, or any muscle pain. ENDOCRINE: Denies any polyuria or polydipsia. The rest of the 14-point review of systems is negative. Past Medical History Past Medical History: Coronary Artery Disease (CAD), Chest Pain / Angina, Hyperlipidemia, Hypertension, Myocardial Infarction ([place]) Additional Past Medical History / Comment(s): migraines, multiple broken bones History of Any Multi-Drug Resistant Organisms: None Reported Past Surgical History: Heart Catheterization With Stent Past Anesthesia/Blood Transfusion Reactions: No Reported Reaction Date of Last Stent Placement:: 05/10/23 Past Psychological History: Anxiety, Panic Disorder Smoking Status: Former smoker Past Alcohol Use History: None Reported Past Drug Use History: None Reported - Past Family History Father Family Medical History: Chest Pain / Angina, Coronary Artery Disease (CAD), Hyperlipidemia, Myocardial Infarction ([place]) Additional Family Medical History / Comment(s): History of CABG x4. Mother Family Medical History: CVA/TIA, Myocardial Infarction ([place]) Medications and Allergies Home Medications Medication Instructions Recorded Confirmed Type Aspirin 81 mg PO DAILY #30 tab 05/12/23 06/09/24 Rx Prasugrel [Effient] 10 mg PO DAILY #30 tab 05/12/23 06/09/24 Rx Atorvastatin [Lipitor] 80 mg PO DAILY 06/09/24 06/09/24 History Allergies Allergy/AdvReac Type Severity Reaction Status Date / Time No Known Allergies Allergy Verified 06/09/24 13:23 Physical Exam Vitals: Vital Signs Temp Pulse Resp BP Pulse Ox 06/09/24 17:57 85 16 117/55 97 06/09/24 16:26 75 18 133/94 98 06/09/24 15:25 79 18 139/88 99 06/09/24 14:41 78 16 110/96 98 06/09/24 14:17 60 18 107/67 95 06/09/24 14:01 64 06/09/24 13:55 63 16 108/75 100 06/09/24 13:47 64 18 83/61 99 06/09/24 13:40 60 06/09/24 13:19 97.7 F 63 18 95/84 95 Intake and Output 06/09/24 06/09/24 06/09/24 06:59 14:59 22:59 Other: Weight 72.575 kg General: Well-appearing, nontoxic, no acute distress. Head: Normocephalic, atraumatic Eyes: PERRLA, EOMI ENT: Airway patent, dried blood around the mouth and naris, no active bleeding Chest: Nonlabored breathing Skin: No visual rash, normal skin tone Neuro: Alert and oriented 3 Musculoskeletal: No gross abnormalities Results CBC & Chem 7: 06/09/24 13:29 06/09/24 13:29 Labs: Abnormal Lab Results - Last 24 Hours (Table) 06/09/24 06/09/24 06/09/24 Range/Units 13:29 13:29 13:29 MCH 32.4 H (27.0-32.0) pg MPV 8.9 L (9.5-12.2) fL Eosinophils # 0.47 H (0.04-0.35) 10*3/uL APTT 18.4 L (22.0-30.0) sec Glucose 132 H (74-99) mg/dL Assessment and Plan Assessment: 1. Epistaxis - Hemorrhage control was initially attempted with rapid Rhino. Patient still began to bleed. Rapid Rhino was removed patient had a Merisel that was placed deep with control of epistaxis. Patient had large volume hematemesis. Unclear if there is a associated GI bleed versus if patient had swallowed blood. --Patient started replating once he was transferred to the floor; will order IV TXA, 1 g IV x 1 --Will monitor H&H closely and transfuse if hemoglobin drops below 8 - Patient is currently hemodynamically stable 2. Hematemesis; patient reports hematemesis; possibly swallowed blood - We will monitor H&H; patient has been placed on IV Protonix - General Surgery consulted 3. History of coronary artery disease with stent placement; last stent placed in April 2023 - Patient is currently on aspirin and Effient which will be placed on hold 4. Hyperlipidemia; continue with home dose of Lipitor DVT prophylaxis; SCDs only given continuing epistaxis CODE STATUS; full code
[2024-06-09 20:31] LABS: Basophils # (A) 0.05 10*3/uL (0.00-0.10); Basophils % (A) 0.4 %; Eosinophils # (A) 0.06 10*3/uL (0.04-0.35); Eosinophils % (A) 0.4 %; HCT 39.1 % (39.6-50.0); HGB 13.5 g/dL (13.0-17.0); Lymphocytes # (A) 2.25 10*3/uL (0.90-5.00); Lymphocytes % (A) 16.5 %; MCH 31.7 pg (27.0-32.0); MCHC 34.5 g/dL (32.0-37.0); MCV 91.8 fL (80.0-97.0); Mean Platelet Volume 8.7 fL (9.5-12.2); Monocytes # (A) 0.71 10*3/uL (0.20-1.00); Monocytes % (A) 5.2 %; Neutrophils # (A) 10.49 10*3/uL (1.80-7.70); Neutrophils % (A) 77.2 %; Platelet Count 313 10*3/uL (140-440); RBC 4.26 10*6/uL (4.40-5.60); RDW 12.1 % (11.5-14.5)
[2024-06-09] MEDS: TRANEXAMIC 1,000 MG/100ML-NACL 1,000 MG in SALINE 1 100ML.BAG IV STA (20:48)
[2024-06-10] MEDS: ATORVASTATIN 80 MG TAB PO SCH (08:02)
[2024-06-10 08:03] LABS: Basophils # (A) 0.04 10*3/uL (0.00-0.10); Basophils % (A) 0.3 %; Eosinophils % (A) 1.7 %; HCT 31.6 % (39.6-50.0); HGB 10.8 g/dL (13.0-17.0); Lymphocytes # (A) 2.08 10*3/uL (0.90-5.00); Lymphocytes % (A) 17.3 %; MCH 31.9 pg (27.0-32.0); MCHC 34.2 g/dL (32.0-37.0); MCV 93.2 fL (80.0-97.0); Mean Platelet Volume 8.9 fL (9.5-12.2); Monocytes # (A) 0.85 10*3/uL (0.20-1.00); Monocytes % (A) 7.1 %; Neutrophils # (A) 8.84 10*3/uL (1.80-7.70); Neutrophils % (A) 73.3 %; Platelet Count 270 10*3/uL (140-440); RBC 3.39 10*6/uL (4.40-5.60); RDW 12.1 % (11.5-14.5); WBC 12.05 10*3/uL (4.50-10.00)
[2024-06-10] MEDS: TRANEXAMIC 1,000 MG/100ML-NACL 1,000 MG in SALINE 1 100ML.BAG IV STA (08:52)
[2024-06-10] MEDS: TRANEXAMIC ACID 1,000 MG in SODIUM CHLORIDE 0.9% 250 ML IV ONE (09:20)
[2024-06-10 09:34] LABS: Calcium 7.8 mg/dL (8.7-10.3); Carbon Dioxide 22.9 mmol/L (21.6-31.8); Chloride 108 mmol/L (96-109); Glucose 98 mg/dL (70-110); Potassium 4.1 mmol/L (3.5-5.5); Sodium 139 mmol/L (135-145)
[2024-06-10 10:05] LABS: Basophils # (A) 0.05 X 10*3/uL (0.00-0.10); Basophils % (A) 0.5 %; Eosinophils # (A) 0.27 X 10*3/uL (0.04-0.35); Eosinophils % (A) 2.5 %; HCT 33.9 % (39.6-50.0); HGB 11.5 g/dL (13.0-17.0); Lymphocytes # (A) 2.85 X 10*3/uL (0.90-5.00); Lymphocytes % (A) 26.2 %; MCH 31.7 pg (27.0-32.0); MCHC 33.9 g/dL (32.0-37.0); MCV 93.4 FL (80.0-97.0); Mean Platelet Volume 9.3 FL (9.5-12.2); Monocytes # (A) 0.77 X 10*3/uL (0.20-1.00); Monocytes % (A) 7.1 %; NRBC Per 100 WBC 0 X 10*3/uL (0.00-0.01); Neutrophils # (A) 6.92 X 10*3/uL (1.80-7.70); Neutrophils % (A) 63.4 %; Platelet Count 296 X 10*3/uL (140-440); RBC 3.63 X 10*6/uL (4.40-5.60); RDW 12.2 % (11.5-14.5); WBC 10.89 X 10*3/uL (4.50-10.00)
--- NOTE | 2024-06-10 11:53 | P.GSCN ---
History of Present Illness History of present illness: Patient is 51-year-old male presents to the emergency department with epistaxis x 40 minutes. Brought in by EMS. EMS states that there was significant bleeding with estimation of approximately 300 cc of loss of blood. Patient is on anticoagulation medication for A-fib. EMS states that patient had 2 syncopal episodes en route to the ER. Review of Systems - Constitutional Reports as per HPI Past Medical History Past Medical History: Coronary Artery Disease (CAD), Chest Pain / Angina, Hyperl ipidemia, Hypertension, Myocardial Infarction ([place]) Additional Past Medical History / Comment(s): migraines, multiple broken bones Last Myocardial Infarction Date:: April 2023 History of Any Multi-Drug Resistant Organisms: None Reported Past Surgical History: Heart Catheterization With Stent Past Anesthesia/Blood Transfusion Reactions: No Reported Reaction Date of Last Stent Placement:: 05/10/23 Past Psychological History: Anxiety, Panic Disorder Smoking Status: Former smoker Past Alcohol Use History: None Reported Past Drug Use History: None Reported - Past Family History Father Family Medical History: Chest Pain / Angina, Coronary Artery Disease (CAD), Hyperlipidemia, Myocardial Infarction ([place]) Additional Family Medical History / Comment(s): History of CABG x4. Mother Family Medical History: CVA/TIA, Myocardial Infarction ([place]) Medications and Allergies Home Medications Medication Instructions Recorded Confirmed Type Aspirin 81 mg PO DAILY #30 tab 05/12/23 06/09/24 Rx Prasugrel [Effient] 10 mg PO DAILY #30 tab 05/12/23 06/09/24 Rx Atorvastatin [Lipitor] 80 mg PO DAILY 06/09/24 06/09/24 History Allergies Allergy/AdvReac Type Severity Reaction Status Date / Time No Known Allergies Allergy Verified 06/09/24 13:23 Surgical - Exam Osteopathic Statement: *. No significant issues noted on an osteopathic structural exam other than those noted in the History and Physical/Consult. Vital Signs Temp Pulse Resp BP Pulse Ox 97.7 F 63 18 95/84 95 06/09/24 13:19 06/09/24 13:19 06/09/24 13:19 06/09/24 13:19 06/09/24 13:19 General No acute distress, agitated, ANO x 4 HEENT constant dripping of blood along with nasal packing Cardiovascular regular rate and rhythm Pulmonary nonlabored Results - Labs 06/10/24 07:49 06/10/24 05:07 Abnormal Lab Results - Last 24 Hours (Table) 06/09/24 06/09/24 06/09/24 Range/Units 13:29 13: 13:29 WBC (4.50-10.00) 10*3/uL RBC (4.40-5.60) 10*6/uL Hgb (13.0-17.0) g/dL Hct (39.6-50.0) % MCH 32.4 H (27.0-32.0) pg MPV 8.9 L (9.5-12.2) fL Neutrophils # (1.80-7.70) 10*3/uL Eosinophils # 0.47 H (0.04-0.35) 10*3/uL APTT 18.4 L (22.0-30.0) sec Glucose 132 H (74-99) mg/dL Calcium (8.7-10.3) mg/dL Crossmatch 06/09/24 06/09/24 06/10/24 Range/Units 13:29 20:19 05:07 WBC 13.60 H 10.89 H (4.50-10.00) 10*3/uL RBC 4.26 L 3.63 L (4.40-5.60) 10*6/uL Hgb 11.5 L (13.0-17.0) g/dL Hct 39.1 L 33.9 L (39.6-50.0) % MCH (27.0-32.0) pg MPV 8.7 L 9.3 L (9.5-12.2) fL Neutrophils # 10.49 H (1.80-7.70) 10*3/uL Eosinophils # (0.04-0.35) 10*3/uL APTT (22.0-30.0) sec Glucose (74-99) mg/dL Calcium (8.7-10.3) mg/dL Crossmatch See Detail 06/10/24 06/10/24 Range/Units 05:07 07:49 WBC 12.05 H (4.50-10.00) 10*3/uL RBC 3.39 L (4.40-5.60) 10*6/uL Hgb 10.8 L (13.0-17.0) g/dL Hct 31.6 L (39.6-50.0) % MCH (27.0-32.0) pg MPV 8.9 L (9.5-12.2) fL Neutrophils # 8.84 H (1.80-7.70) 10*3/uL Eosinophils # (0.04-0.35) 10*3/uL APTT (22.0-30.0) sec Glucose (74-99) mg/dL Calcium 7.8 L (8.7-10.3) mg/dL Crossmatch Diabetes panel 06/09/24 06/10/24 Range/Units 13:29 05:07 Sodium 137 139 (137-145) mmol/L Potassium 3.6 4.1 (3.5-5.1) mmol/L Chloride 105 108 (98-107) mmol/L Carbon Dioxide 23 22.9 (22-30) mmol/L BUN 12 16.0 (9-20) mg/dL Creatinine 0.90 0.8 (0.66-1.25) mg/dL Glucose 132 H 98 (74-99) mg/dL Calcium 9.3 7.8 L (8.4-10.2) mg/dL Calcium panel 06/09/24 06/10/24 Range/Units 13:29 05:07 Calcium 9.3 7.8 L (8.4-10.2) mg/dL Pituitary panel 06/09/24 06/10/24 Range/Units 13:29 05:07 Sodium 137 139 (137-145) mmol/L Potassium 3.6 4.1 (3.5-5.1) mmol/L Chloride 105 108 (98-107) mmol/L Carbon Dioxide 23 22.9 (22-30) mmol/L BUN 12 16.0 (9-20) mg/dL Creatinine 0.90 0.8 (0.66-1.25) mg/dL Glucose 132 H 98 (74-99) mg/dL Calcium 9.3 7.8 L (8.4-10.2) mg/dL Adrenal panel 06/09/24 06/10/24 Range/Units 13:29 05:07 Sodium 137 139 (137-145) mmol/L Potassium 3.6 4.1 (3.5-5.1) mmol/L Chloride 105 108 (98-107) mmol/L Carbon Dioxide 23 22.9 (22-30) mmol/L BUN 12 16.0 (9-20) mg/dL Creatinine 0.90 0.8 (0.66-1.25) mg/dL Glucose 132 H 98 (74-99) mg/dL Calcium 9.3 7.8 L (8.4-10.2) mg/dL Assessment and Plan Assessment: 59-year-old male with epistaxis, currently on anticoagulation Discussed with the ER that patient had cessation of epistaxis with Rhino Rocket however after discussing with the patient, patient states bleeding never subsided despite packing. I had a discussion with the ER stating that he may need ENT for further evaluation but they decided to keep him secondary to cessation of epistaxis. He currently has ongoing bleeding and may need further invasive intervention thus I am recommending patient be transferred to a facility with ENT coverage. Patient is on anticoagulation secondary to stent per patient I am hesitant to prescribe a reversal agent Time with Patient: Less than 30
--- NOTE | 2024-06-10 15:01 | P.PN ---
Subjective Progress Note Date: 06/10/24 51-year-old male presents to the emergency department with epistaxis x 40 minutes. Brought in by EMS. EMS states that there was significant bleeding with estimation of approximately 300 cc of loss of blood. Patient is on anticoagulation medication for A-fib. EMS states that patient had 2 syncopal episodes en route to the ER. Patient reports episodes of hematemesis also; medication review reveals patient is on aspirin, Effient and Lipitor In the ED hemorrhage control was initially attempted with rapid Rhino. Patient continued to bleed and rapid Rhino was removed patient had a Merisel that was placed deep with control of epistaxis. Patient had large volume hematemesis. Unclear if there is a associated GI bleed versus if patient had swallowed blood. -- At the time of my examination patient has nasal packing in place but continues to have significant amount of bleeding; ice and pressure remains in place - Will order 1 dose of IV TXA Patient continues to have episodes of epistaxis; packing remains in place; will repeat TXA bolus and maintenance infusion -Hemoglobin down to 10 this morning which is dropped 4 g since yesterday; will transfuse with 1 unit packed RBCs - Continue to monitor H&H closely - Transferred to [facility] for ENT evaluation has been initiated and patient has been accepted; patient's report called to Dr. Hernandez Objective - Vital Signs Vital signs: Vital Signs Temp 97 F L 06/10/24 07:28 Pulse 87 06/10/24 07:28 Resp 20 06/10/24 07:28 BP 114/76 06/10/24 07:28 Pulse Ox 98 06/10/24 07:28 FiO2 Intake & Output 06/09/24 06/10/24 06/10/24 18:59 06:59 18:59 Weight 72.575 kg 72.575 kg Other: Voiding Method Urinal # Voids 3 - Exam General: Well-appearing, nontoxic, no acute distress. Head: Normocephalic, atraumatic Eyes: PERRLA, EOMI ENT: Airway patent, dried blood around the mouth and naris, no active bleeding Chest: Nonlabored breathing Skin: No visual rash, normal skin tone Neuro: Alert and oriented 3 Musculoskeletal: No gross abnormalities - Labs CBC & Chem 7: 06/10/24 07:49 06/10/24 05:07 Labs: Abnormal Lab Results - Last 24 Hours (Table) 06/09/24 06/09/24 06/09/24 Range/Units 13:29 13:29 13:29 WBC (4.50-10.00) 10*3/uL RBC (4.40-5.60) 10*6/uL Hgb (13.0-17.0) g/dL Hct (39.6-50.0) % MCH 32.4 H (27.0-32.0) pg MPV 8.9 L (9.5-12.2) fL Neutrophils # (1.80-7.70) 10*3/uL Eosinophils # 0.47 H (0.04-0.35) 10*3/uL APTT 18.4 L (22.0-30.0) sec Glucose 132 H (74-99) mg/dL 06/09/24 06/10/24 Range/Units 20:19 07:49 WBC 13.60 H 12.05 H (4.50-10.00) 10*3/uL RBC 4.26 L 3.39 L (4.40-5.60) 10*6/uL Hgb 10.8 L (13.0-17.0) g/dL Hct 39.1 L 31.6 L (39.6-50.0) % MCH (27.0-32.0) pg MPV 8.7 L 8.9 L (9.5-12.2) fL Neutrophils # 10.49 H 8.84 H (1.80-7.70) 10*3/uL Eosinophils # (0.04-0.35) 10*3/uL APTT (22.0-30.0) sec Glucose (74-99) mg/dL Assessment and Plan Assessment: 1. Epistaxis - Hemorrhage control was initially attempted with rapid Rhino. Patient still began to bleed. Rapid Rhino was removed patient had a Merisel that was placed deep with control of epistaxis. Patient had large volume hematemesis. Unclear if there is a associated GI bleed versus if patient had swallowed blood. --Patient started replating once he was transferred to the floor; will order IV TXA, 1 g IV x 1 --Will monitor H&H closely and transfuse if hemoglobin drops below 8 - Patient is currently hemodynamically stable 2. Hematemesis; patient reports hematemesis; possibly swallowed blood - We will monitor H&H; patient has been placed on IV Protonix - General Surgery consulted 3. History of coronary artery disease with stent placement; last stent placed in April 2023 - Patient is currently on aspirin and Effient which will be placed on hold 4. Hyperlipidemia; continue with home dose of Lipitor DVT prophylaxis; SCDs only given continuing epistaxis CODE STATUS; full code
[2024-06-10] MEDS: ACETAMINOPHEN TAB 325 MG TAB PO PRN (15:54)
[2024-06-10 18:01] LABS: Basophils # (A) 0.05 10*3/uL (0.00-0.10); Basophils % (A) 0.5 %; Eosinophils # (A) 0.19 10*3/uL (0.04-0.35); Eosinophils % (A) 1.7 %; HCT 31.9 % (39.6-50.0); HGB 11.3 g/dL (13.0-17.0); Lymphocytes # (A) 3.28 10*3/uL (0.90-5.00); Lymphocytes % (A) 29.7 %; MCH 32.6 pg (27.0-32.0); MCHC 35.4 g/dL (32.0-37.0); MCV 91.9 fL (80.0-97.0); Mean Platelet Volume 8.9 fL (9.5-12.2); Monocytes # (A) 0.67 10*3/uL (0.20-1.00); Monocytes % (A) 6.1 %; Neutrophils # (A) 6.84 10*3/uL (1.80-7.70); Neutrophils % (A) 61.7 %; Platelet Count 297 10*3/uL (140-440); RBC 3.47 10*6/uL (4.40-5.60); WBC 11.06 10*3/uL (4.50-10.00)
[2024-06-10 18:02] LABS: Glucose,Whole Blood 141 mg/dL (70-110)
[2024-06-10] MEDS: TRANEXAMIC ACID 1,000 MG/10 ML VIAL INHALATION ONE (18:23)
[2024-06-10] MEDS ORDERED: OXYMETAZOLINE 0.05% NASL SPRAY 1 SPRAY BOTTLE NASAL STA (19:15)
[2024-06-10 19:49] LABS: Basophils # (A) 0.04 10*3/uL (0.00-0.10); Basophils % (A) 0.4 %; Eosinophils # (A) 0.17 10*3/uL (0.04-0.35); Eosinophils % (A) 1.5 %; HCT 30.3 % (39.6-50.0); HGB 10.2 g/dL (13.0-17.0); Lymphocytes # (A) 3.05 10*3/uL (0.90-5.00); Lymphocytes % (A) 27.1 %; MCH 32.2 pg (27.0-32.0); MCHC 33.7 g/dL (32.0-37.0); MCV 95.6 fL (80.0-97.0); Mean Platelet Volume 9.3 fL (9.5-12.2); Monocytes # (A) 0.99 10*3/uL (0.20-1.00); Monocytes % (A) 8.8 %; Neutrophils # (A) 6.98 10*3/uL (1.80-7.70); Neutrophils % (A) 61.9 %; Platelet Count 282 10*3/uL (140-440); RBC 3.17 10*6/uL (4.40-5.60); RDW 11.9 % (11.5-14.5); WBC 11.26 10*3/uL (4.50-10.00)
[2024-06-10 19:50] VITALS: BP 133/84; PULSE 115; RESP 18; TEMP 98
--- NOTE | 2024-06-13 09:45 | CDI ---
Documentation Clarification Form Date: 06/13/2024 09:28:32 AM From: Zoila Syed Phone: Admit Date: 06/09/2024 05:25:00 PM Patient Name: Dieudonne Pelletier Visit Number: [id number] Discharge Date: 06/10/2024 08:09:00 PM ATTENTION: The Clinical Documentation Specialists (CDI) and [facility] Coding Staff appreciate your assistance in clarifying documentation. Please respond to the clarification below the line at the bottom and electronically sign. The CDI & [facility] Coding staff will review the response and follow-up if needed. Please note: Queries are made part of the Legal Health Record. If you have any questions, please contact the author of this message via ITS. Doctor/Provider: Pia Asencio There is documentation of Epistaxis in H/P note on [facility] on anticoagulation. Additional clarification is requested. History/Risk Factors: 51-year-old male presents to the emergency department withepistaxisx 40 minutes. Brought in by EMS.EMS states that there was significantbleeding with estimation of approximately 300 cc ofloss of blood. Patientis on anticoagulationmedication forA-fib. EMS states that patient had 2syncopal episodes en route to the ER. Patient reports episodes ofhematemesisalso; medication review revealspatient is on aspirin, Effient and Lipitor Clinical Indicators: H/P 06/09- Epistaxis -Hemorrhage controlwas initially attempted withrapidRhino. Patient still began to bleed. RapidRhino wasremovedpatient had a Merisel that wasplaced deep withcontrol of epistaxis. Patient had large volumehematemesis. Unclear ifthere is a associatedGI bleedversus if patient had swallowed blood. There is documentation Consult note 06/10 - He currently has ongoingbleedingand may need further invasive intervention thus I am recommending patient be transferred to a facility with ENT coverage. Patientis on anticoagulationsecondary tostent per patient I am hesitant to prescribe areversalagent On 06/10 pn - Patient continues to have episodes ofepistaxis;packingremains in place; will repeat TXA bolus andmaintenanceinfusion -Hemoglobin down to 10 this morning which is dropped 4 g since yesterday; will transfusewith 1 unitpackedRBCs - Continue to monitor H H closely - [facility]: control of bleeding RapidRhino wasremovedpatient had a Merisel that wasplaced deep withcontrol of epistaxis. order IV TXA, 1 g IV x 1-Will monitor H H closely andtransfuseif hemoglobin drops below 8 Can you please clarify if etiology of Epistaxis? [ ] Yes ,Epistaxis is due to anticoagulants [ ] No ,Epistaxis is not due to anticoagulants [ ] Other, please specify [@@@ ] Unable to determine (Template Last Revised: April 2020) MTDD
== END 2024-06-10 20:09 | disposition short-term general hospital (02) | DRG 151 ==
LOC: EC 13:13 → 4SSUR 17:25 → 3SCARD 06-10 09:00
PROVIDERS: ADMIT Internal Medicine; ATTEND Internal Medicine
PROC: 2Y41X5Z Packing of Nasal Region using Packing Material (ICD-10-PCS; principal; 2024-06-09)
DX: R04.0 Epistaxis (principal); K92.0 Hematemesis; I48.91 Unspecified atrial fibrillation; R55 Syncope and collapse; E78.5 Hyperlipidemia, unspecified; I10 Essential (primary) hypertension; I25.10 Atherosclerotic heart disease of native coronary artery without angina pectoris; Z79.01 Long term (current) use of anticoagulants; Z79.82 Long term (current) use of aspirin; Z87.891 Personal history of nicotine dependence; Z95.5 Presence of coronary angioplasty implant and graft; I25.2 Old myocardial infarction; Z79.02 Long term (current) use of antithrombotics/antiplatelets; Z79.899 Other long term (current) drug therapy
CPT/HCPCS: 30903; 36415; 80048; 84484; 85025; 85610; 85730; 86850; 86900; 86901; 86920; 93005; 94640; 96361; 96374; 96375; 99285

== ENCOUNTER 2024-06-22 16:28 | Emergency (ER) | payer OTHER ==
[2024-06-22] MEDS: MORPHINE SULFATE 4 MG/ML SYRINGE IM STA (17:09)
[2024-06-22] MEDS: TRANEXAMIC ACID 1,000 MG/10 ML VIAL IRRIGATION ONE (17:19)
[2024-06-22 17:53] LABS: Basophils # (A) 0.04 10*3/uL (0.00-0.10); Basophils % (A) 0.5 %; Eosinophils # (A) 0.33 10*3/uL (0.04-0.35); Eosinophils % (A) 4.5 %; Lymphocytes # (A) 1.86 10*3/uL (0.90-5.00); Lymphocytes % (A) 25.2 %; MCH 30.5 pg (27.0-32.0); MCHC 32.3 g/dL (32.0-37.0); MCV 94.5 fL (80.0-97.0); Mean Platelet Volume 8.2 fL (9.5-12.2); Monocytes # (A) 0.82 10*3/uL (0.20-1.00); Monocytes % (A) 11.1 %; Neutrophils % (A) 58.3 %; RBC 3.28 10*6/uL (4.40-5.60); RDW 14.6 % (11.5-14.5); WBC 7.38 10*3/uL (4.50-10.00)
[2024-06-22 17:56] LABS: Platelet Count 656 10*3/uL (140-440)
[2024-06-22 18:00] LABS: ALT 48 U/L (4-49); AST 27 U/L (17-59); African American GFR (CKD) >90 (>60 ml/min/1.73 sqM); Albumin 3.7 g/dL (3.5-5.0); Alkaline Phosphatase 112 U/L (38-126); Anion Gap 7 mmol/L; Blood Urea Nitrogen 8 mg/dL (9-20); Calcium 9.2 mg/dL (8.4-10.2); Carbon Dioxide 27 mmol/L (22-30); Chloride 104 mmol/L (98-107); Glucose 104 mg/dL (74-99); Non-African American GFR(CKD) >90 (>60 ml/min/1.73 sqM); Potassium 4.1 mmol/L (3.5-5.1); Sodium 138 mmol/L (137-145); Total Bilirubin 0.5 mg/dL (0.2-1.3); Total Protein 6.3 g/dL (6.3-8.2)
[2024-06-22 18:02] LABS: INR 0.8 (<1.2); Partial Thromboplastin Time 22.3 sec (22.0-30.0); Prothrombin Time 9.6 sec (10.0-12.5)
[2024-06-22] MEDS: HYDROmorphone 2 MG/ML 1 ML SYRINGE IVP STA (18:36)
--- NOTE | 2024-06-22 20:00 | ED ---
ENT HPI - General Chief complaint: ENT Stated complaint: Nose Bleed Time Seen by Provider: 06/22/24 16:45 Source: patient, EMS Mode of arrival: EMS Limitations: no limitations - History of Present Illness Initial comments: 59-year-old male presenting with chief complaint of nosebleed. Started about an hour prior to arrival. Patient is on Xarelto for previous stents. Denies any injury or trauma. Patient was here on the for the same complaint. Multiple rounds of packing were placed. Patient was admitted and ended up needing to be transferred to [facility] for ENT consult. Patient reports that he had multiple rounds of packing well at [facility]. He denies any history of nosebleeds prior to last week. He is feeling weak and dizzy. Patient has a nasal clamp and Afrin that he tried using prior to coming to the hospital. - Related Data Home Medications Medication Instructions Recorded Confirmed Atorvastatin [Lipitor] 80 mg PO DAILY 06/09/24 06/09/24 Previous Rx's Medication Instructions Recorded Aspirin 81 mg PO DAILY #30 tab 05/12/23 Prasugrel [Effient] 10 mg PO DAILY #30 tab 05/12/23 Allergies Allergy/AdvReac Type Severity Reaction Status Date / Time No Known Allergies Allergy Verified 06/22/24 16:37 Review of Systems ROS Statement: Those systems with pertinent positive or pertinent negative responses have been documented in the HPI. ROS Other: All systems not noted in ROS Statement are negative. Past Medical History Past Medical History: Coronary Artery Disease (CAD), Chest Pain / Angina, Hype rlipidemia, Hypertension, Myocardial Infarction ([place]) Additional Past Medical History / Comment(s): migraines, multiple broken bones Last Myocardial Infarction Date:: April 2023 History of Any Multi-Drug Resistant Organisms: None Reported Past Surgical History: Heart Catheterization With Stent Past Anesthesia/Blood Transfusion Reactions: No Reported Reaction Date of Last Stent Placement:: 05/10/23 Past Psychological History: Anxiety, Panic Disorder Smoking Status: Former smoker Past Alcohol Use History: None Reported Past Drug Use History: None Reported - Past Family History Father Family Medical History: Chest Pain / Angina, Coronary Artery Disease (CAD), Hyperlipidemia, Myocardial Infarction ([place]) Additional Family Medical History / Comment(s): History of CABG x4. Mother Family Medical History: CVA/TIA, Myocardial Infarction ([place]) General Exam Limitations: no limitations General appearance: alert, in no apparent distress Head exam: Present: atraumatic, normocephalic, normal inspection Eye exam: Present: normal appearance ENT exam: Present: other (Bright red blood pouring from the right nostril) Neck exam: Present: normal inspection. Absent: meningismus Respiratory exam: Absent: respiratory distress Cardiovascular Exam: Present: regular rate Neurological exam: Present: alert, oriented X3 Psychiatric exam: Present: normal affect, normal mood Skin exam: Present: warm, dry, normal color Course Vital Signs 06/22/24 06/22/24 16:30 18:04 Temperature 98.0 F 98.1 F Pulse Rate 87 62 Respiratory 19 16 Rate Blood Pressure 134/82 143/86 O2 Sat by Pulse 97 98 Oximetry Medical Decision Making - Medical Decision Making Was pt. sent in by a medical professional or institution (, PA, CONSTRUCTION PLANT OPERATOR, urgent care, hospital, or long term...) When possible be specific @ -No Did you speak to anyone other than the patient for history (EMS, parent, family, police, friend...)? What history was obtained from this source @ -No Did you review nursing and triage notes (agree or disagree)? Why? @ -I reviewed and agree with nursing and triage notes Were old charts reviewed (outside hosp., previous admission, EMS record, old EKG, old radiological studies, urgent care reports/EKG's, long term records)? Report findings @ -I reviewed last week's admission Differential Diagnosis (chest pain, altered mental status, abdominal pain women, abdominal pain men, vaginal bleeding, weakness, fever, dyspnea, syncope, headache, dizziness, GI bleed, back pain, seizure, CVA, palpatations, mental health, musculoskeletal)? @ -Differential includes anatomical variant, trauma, coagulopathy, not an all- inclusive list EKG interpreted by me (3pts min.). @ -As above X-rays interpreted by me (1pt min.). @ -None done CT interpreted by me (1pt min.). @ -None done U/S interpreted by me (1pt. min.). @ -None done What testing was considered but not performed or refused? (CT, X-rays, U/S, labs)? Why? @ -None What meds were considered but not given or refused? Why? @ -None Did you discuss the management of the patient with other professionals (professionals i.e. DrDania, PA, CONSTRUCTION PLANT OPERATOR, lab, RT, psych nurse, elementary school social worker, laborer dairy farm, teacher, commanding officer garage, manager of case management)? Give summary @ -I spoke with ENT on-call Dr. Quevedo, he recommends transfer back to [facility] for continuity of care and higher level of care I spoke with ENT Dr. Green at [facility] who accepts transfer Was smoking cessation discussed for >3mins.? @ -No Was critical care preformed (if so, how long)? @ -No Were there social determinants of health that impacted care today? How? (Homelessness, low income, unemployed, alcoholism, drug addiction, transp ortation, low edu. Level, literacy, decrease access to med. care, retirement, rehab)? @ -No Was there de-escalation of care discussed even if they declined (Discuss DNR or withdrawal of care, Hospice)? DNR status @ -No What co-morbidities impacted this encounter? (DM, HTN, Smoking, COPD, CAD, Cancer, CVA, ARF, Chemo, Hep., AIDS, mental health diagnosis, sleep apnea, morbid obesity)? @ -None Was patient admitted / discharged? Hospital course, mention meds given and route, prescriptions, significant lab abnormalities, going to OR and other pertinent info. @ -59-year-old male presenting with chief complaint of nosebleed. Started an hour prior to arrival. Patient is on Xarelto. No injury. Patient was seen her last week for the same complaint. He was admitted and ended up being transferred to [facility] for ENT consult. Bleeding is coming from the right nostril. While he was here the patient had a long Merisel placed and some TXA was shot into the Merisel. This has slowed down the bleeding though there is some trickling around the Merisel. No bleeding from the left nostril. Patien t's anatomy is making it very difficult to use a Rhino Rocket. Hemoglobin is 10. On the it seems he had a steady decline from 11.5-10.2 while here at our facility. Spoke with ENT on-call Dr. Quevedo who recommends transfer back to [facility] for continuity of care and also please their facility is better equipped to treat the patient's issue. Patient is agreeable with transfer. I discussed this case with my attending Dr. Hanson Undiagnosed new problem with uncertain prognosis? @ -No Drug Therapy requiring intensive monitoring for toxicity (Heparin, Nitro, Insulin, Cardizem)? @ -No Were any procedures done? @ -No Diagnosis/symptom? @ -Epistaxis Acute, or Chronic, or Acute on Chronic? @ -Acute Uncomplicated (without systemic symptoms) or Complicated (systemic symptoms)? @ -Complicated Side effects of treatment? @ -No Exacerbation, Progression, or Severe Exacerbation? @ -No Poses a threat to life or bodily function? How? (Chest pain, [place], [place], pneumonia, PE, COPD, DKA, ARF, appy, cholecystitis, CVA, Diverticulitis, Homicidal, Suicidal, threat to staff... and all critical care pts) @ -Yes - Lab Data Result diagrams: 06/22/24 17:37 06/22/24 17:37 Lab Results 06/22/24 06/22/24 06/22/24 Range/Units 17:37 17:37 17:37 WBC 7.38 (4.50-10.00) 10*3/uL RBC 3.28 L (4.40-5.60) 10*6/uL Hgb 10.0 L (13.0-17.0) g/dL Hct 31.0 L (39.6-50.0) % MCV 94.5 (80.0-97.0) fL MCH 30.5 (27.0-32.0) pg MCHC 32.3 (32.0-37.0) g/dL Plt Count 656 H D (140-440) 10*3/uL MPV 8.2 L (9.5-12.2) fL Immature Gran % (Auto) 0.4 % Neutrophils % 58.3 % Lymphocytes % 25.2 % Monocytes % 11.1 % Eosinophils % 4.5 % Basophils % 0.5 % Immature Gran # 0.03 (0.00-0.04) 10*3/uL Neutrophils # 4.30 (1.80-7.70) 10*3/uL Lymphocytes # 1.86 (0.90-5.00) 10*3/uL Monocytes # 0.82 (0.20-1.00) 10*3/uL Eosinophils # 0.33 (0.04-0.35) 10*3/uL Basophils # 0.04 (0.00-0.10) 10*3/uL PT 9.6 L (10.0-12.5) sec INR 0.8 (<1.2) APTT 22.3 (22.0-30.0) sec Sodium 138 (137-145) mmol/L Potassium 4.1 (3.5-5.1) mmol/L Chloride 104 (98-107) mmol/L Carbon Dioxide 27 (22-30) mmol/L Anion Gap 7 mmol/L BUN 8 L (9-20) mg/dL Creatinine 0.81 (0.66-1.25) mg/dL Est GFR (CKD-EPI)AfAm >90 (>60 ml/min/1.73 sqM) Est GFR (CKD-EPI)NonAf >90 (>60 ml/min/1.73 sqM) Glucose 104 H (74-99) mg/dL Calcium 9.2 (8.4-10.2) mg/dL Total Bilirubin 0.5 (0.2-1.3) mg/dL AST 27 (17-59) U/L ALT 48 (4-49) U/L Alkaline Phosphatase 112 (38-126) U/L Total Protein 6.3 (6.3-8.2) g/dL Albumin 3.7 (3.5-5.0) g/dL Disposition Clinical Impression: Epistaxis Disposition: OTHER INSTITUTION NOT DEFINED Condition: Serious Referrals: None,Stated [Primary Care Provider] - 1-2 days Time of Disposition: 20:24 - Out of Hospital Transfer - Req. Specs Out of Hospital Transfer - Requested Specifics: Other Emergency Center ([facility])
[2024-06-22] MEDS: MORPHINE SULFATE 4 MG/ML SYRINGE IVP STA (21:04)
[2024-06-22 21:10] VITALS: BP 123/79; PULSE 69; RESP 18; TEMP 97.3
== END 2024-06-22 21:45 | disposition other institution (70) ==
LOC: EC 16:28
DX: R04.0 Epistaxis (principal)
CPT/HCPCS: 99284; 96374; 96375; 96372; 36415; 80053; 85025; 85610; 85730; J2270; J1171

== ENCOUNTER 2024-09-21 12:12 | Observation (INO) | payer OTHER ==
--- NOTE | 2024-09-21 12:27 | ED ---
General Adult HPI - General Stated complaint: Chest pain Time Seen by Provider: 09/21/24 12:14 Source: patient, EMS, RN notes reviewed Mode of arrival: EMS Limitations: no limitations - History of Present Illness Initial comments: Patient is a 59-year-old male present to the emergency department with concerns with chest discomfort. Onset was around half hour or so ago. Patient does have complaints of discomfort in his chest that is hard to describe. Patient has associated lightheadedness. Patient does have history of cardiac disease however this does not feel quite similar. Patient did have aspirin and nitroglycerin and Zofran by EMS with near resolution of symptoms. - Related Data Home Medications Medication Instructions Recorded Confirmed Atorvastatin [Lipitor] 80 mg PO DAILY 06/09/24 06/09/24 Previous Rx's Medication Instructions Recorded Aspirin 81 mg PO DAILY #30 tab 05/12/23 Prasugrel [Effient] 10 mg PO DAILY #30 tab 05/12/23 Allergies Allergy/AdvReac Type Severity Reaction Status Date / Time No Known Allergies Allergy Verified 09/21/24 12:27 Review of Systems ROS Statement: Those systems with pertinent positive or pertinent negative responses have been documented in the HPI. ROS Other: All systems not noted in ROS Statement are negative. Constitutional: Denies: fever Eyes: Denies: eye pain ENT: Denies: ear pain Cardiovascular: Reports: as per HPI, chest pain Musculoskeletal: Denies: back pain Past Medical History Past Medical History: Coronary Artery Disease (CAD), Chest Pain / Angina, Hyperlipidemia, Hypertension, Myocardial Infarction ([place]) Additional Past Medical History / Comment(s): migraines, multiple broken bones Last Myocardial Infarction Date:: April 2023 History of Any Multi-Drug Resistant Organisms: None Reported Past Surgical History: Heart Catheterization With Stent Past Anesthesia/Blood Transfusion Reactions: No Reported Reaction Date of Last Stent Placement:: 05/10/23 Past Psychological History: Anxiety, Panic Disorder Smoking Status: Former smoker Past Alcohol Use History: None Reported Past Drug Use History: None Reported - Past Family History Father Family Medical History: Chest Pain / Angina, Coronary Artery Disease (CAD), Hyperlipidemia, Myocardial Infarction ([place]) Additional Family Medical History / Comment(s): History of CABG x4. Mother Family Medical History: CVA/TIA, Myocardial Infarction ([place]) General Exam Limitations: no limitations General appearance: alert, in no apparent distress Head exam: Present: normocephalic Eye exam: Present: normal appearance Respiratory exam: Present: normal lung sounds bilaterally. Absent: chest wall tenderness Cardiovascular Exam: Present: regular rate, normal rhythm, normal heart sounds Expanded Peripheral pulses: 2+: Radial (R), Radial (L), Posterior Tibialis (R), Posterior Tibialis (L) GI/Abdominal exam: Present: soft. Absent: tenderness Extremities exam: Present: normal inspection. Absent: pedal edema, calf tenderness Neurological exam: Present: alert. Absent: motor sensory deficit Psychiatric exam: Present: normal affect, normal mood Skin exam: Present: normal color Course Vital Signs 09/21/24 12:22 Pulse Rate 60 Respiratory 18 Rate Blood Pressure 122/86 O2 Sat by Pulse 98 Oximetry EKG Findings - EKG Results: EKG: interpreted by ANABELD (Right axis.), sinus rhythm, normal QRS, normal ST/T EKG shows: bradycardia Medical Decision Making - Medical Decision Making Was pt. sent in by a medical professional or institution (, PA, EQUITY STRUCTURER, urgent care, hospital, or prison...) When possible be specific @ -No Did you speak to anyone other than the patient for history (EMS, parent, family, police, friend...)? What history was obtained from this source @ -No Did you review nursing and triage notes (agree or disagree)? Why? @ -I reviewed and agree with nursing and triage notes Were old charts reviewed (outside hosp., previous admission, EMS record, old EKG, old radiological studies, urgent care reports/EKG's, prison records)? Report findings @ -No old charts were reviewed Differential Diagnosis (chest pain, altered mental status, abdominal pain women, abdominal pain men, vaginal bleeding, weakness, fever, dyspnea, syncope, headache, dizziness, GI bleed, back pain, seizure, CVA, palpatations, mental health, musculoskeletal)? @ -Differential Chest Pain: Stable Angina, Unstable Angina, STEMI, NSTEMI Aortic Dissection, Pneumothorax, Musculoskeletal, Esophageal Spasm GERD, Cholecystitis, Pancreatitis, Zoster, this is not meant to be an all-inclusive list. EKG interpreted by me (3pts min.). @ -As above X-rays interpreted by me (1pt min.). @ -Chest x-ray shows no acute process CT interpreted by me (1pt min.). @ -None done U/S interpreted by me (1pt. min.). @ -None done What testing was considered but not performed or refused? (CT, X-rays, U/S, labs)? Why? @ -None What meds were considered but not given or refused? Why? @ -None Did you discuss the management of the patient with other professionals (professionals i.e. Dr., PA, EQUITY STRUCTURER, lab, RT, psych nurse, high school social studies tutor, terminal gauger supervisor, teacher, unarmed security officer, correctional case manager)? Give summary @ -Case was discussed with practitioner Pedro who will admit covering hospital call with [facility] Was smoking cessation discussed for >3mins.? @ -No Was critical care preformed (if so, how long)? @ -No Were there social determinants of health that impacted care today? How? (Homelessness, low income, unemployed, alcoholism, drug addiction, transportation, low edu. Level, literacy, decrease access to med. care, skilled nursing, rehab)? @ -No Was there de-escalation of care discussed even if they declined (Discuss DNR or withdrawal of care, Hospice)? DNR status @ -No What co-morbidities impacted this encounter? (DM, HTN, Smoking, COPD, CAD, Cancer, CVA, ARF, Chemo, Hep., AIDS, mental health diagnosis, sleep apnea, morbid obesity)? @ -History of cardiac disease Was patient admitted / discharged? Hospital course, mention meds given and route, prescriptions, significant lab abnormalities, going to OR and other pertinent info. @ -Patient presents with chest discomfort improved with nitroglycerin. Initial evaluation unremarkable. Patient reevaluated and resting comfortably in bed. Patient is updated on results and plan. Patient will be admitted with cardiac consult. Admission orders written. Undiagnosed new problem with uncertain prognosis? @ -No Drug Therapy requiring intensive monitoring for toxicity (Heparin, Nitro, Insulin, Cardizem)? @ -No Were any procedures done? @ -No Diagnosis/symptom? @ -Chest pain Acute, or Chronic, or Acute on Chronic? @ -Acute Uncomplicated (without systemic symptoms) or Complicated (systemic symptoms)? @ -Default Side effects of treatment? @ -No Exacerbation, Progression, or Severe Exacerbation? @ -No Poses a threat to life or bodily function? How? (Chest pain, [place], HI, pneumonia, PE, COPD, DKA, ARF, appy, cholecystitis, CVA, Diverticulitis, Homicidal, Suicidal, threat to staff... and all critical care pts) @ -Threat to cardiac function - Lab Data Result diagrams: 09/21/24 12:47 09/21/24 12:47 Lab Results 09/21/24 09/21/24 09/21/24 Range/Units 12:47 12:47 12:47 WBC 6.13 (4.50-10.00) 10*3/uL RBC 4.91 (4.40-5.60) 10*6/uL Hgb 12.4 L (13.0-17.0) g/dL Hct 38.5 L (39.6-50.0) % MCV 78.4 L (80.0-97.0) fL MCH 25.3 L (27.0-32.0) pg MCHC 32.2 (32.0-37.0) g/dL Plt Count 356 (140-440) 10*3/uL MPV 9.0 L (9.5-12.2) fL Immature Gran % (Auto) 0.2 % Neutrophils % 44.3 % Lymphocytes % 38.5 % Monocytes % 9.6 % Eosinophils % 6.4 % Basophils % 1.0 % Immature Gran # 0.01 (0.00-0.04) 10*3/uL Neutrophils # 2.72 (1.80-7.70) 10*3/uL Lymphocytes # 2.36 (0.90-5.00) 10*3/uL Monocytes # 0.59 (0.20-1.00) 10*3/uL Eosinophils # 0.39 H (0.04-0.35) 10*3/uL Basophils # 0.06 (0.00-0.10) 10*3/uL Sodium 138 (137-145) mmol/L Potassium 5.1 (3.5-5.1) mmol/L Chloride 108 H (98-107) mmol/L Carbon Dioxide 20 L (22-30) mmol/L Anion Gap 10 mmol/L BUN 9 (9-20) mg/dL Creatinine 0.88 (0.66-1.25) mg/dL Est GFR (CKD-EPI)AfAm >90 (>60 ml/min/1.73 sqM) Est GFR (CKD-EPI)NonAf >90 (>60 ml/min/1.73 sqM) Glucose 103 H (74-99) mg/dL Calcium 8.7 (8.4-10.2) mg/dL Magnesium 1.9 (1.6-2.3) mg/dL Total Bilirubin 1.0 (0.2-1.3) mg/dL AST 32 (17-59) U/L ALT 19 (4-49) U/L Alkaline Phosphatase 106 (38-126) U/L Troponin I <0.012 (0.000-0.034) ng/mL Total Protein 7.6 (6.3-8.2) g/dL Albumin 4.5 (3.5-5.0) g/dL Disposition Clinical Impression: Chest pain Disposition: ADMITTED IP TO THIS HOSP Is patient prescribed a controlled substance at d/c from ED?: No Referrals: Dieudonne Vogel DO [Primary Care Provider] - 1-2 days Time of Disposition: 13:57
[2024-09-21] MEDS: SODIUM CHLORIDE 0.9% 500 ML 500 ML IV ONE (13:05)
[2024-09-21 13:16] LABS: Basophils # (A) 0.06 10*3/uL (0.00-0.10); Basophils % (A) 1.0 %; Eosinophils # (A) 0.39 10*3/uL (0.04-0.35); Eosinophils % (A) 6.4 %; HCT 38.5 % (39.6-50.0); HGB 12.4 g/dL (13.0-17.0); Lymphocytes # (A) 2.36 10*3/uL (0.90-5.00); Lymphocytes % (A) 38.5 %; MCH 25.3 pg (27.0-32.0); MCHC 32.2 g/dL (32.0-37.0); MCV 78.4 fL (80.0-97.0); Monocytes # (A) 0.59 10*3/uL (0.20-1.00); Monocytes % (A) 9.6 %; Neutrophils # (A) 2.72 10*3/uL (1.80-7.70); Neutrophils % (A) 44.3 %; Platelet Count 356 10*3/uL (140-440); RBC 4.91 10*6/uL (4.40-5.60); RDW 17.0 % (11.5-14.5); WBC 6.13 10*3/uL (4.50-10.00)
[2024-09-21 13:34] LABS: ALT 19 U/L (4-49); African American GFR (CKD) >90 (>60 ml/min/1.73 sqM); Anion Gap 10 mmol/L; Blood Urea Nitrogen 9 mg/dL (9-20); Calcium 8.7 mg/dL (8.4-10.2); Carbon Dioxide 20 mmol/L (22-30); Chloride 108 mmol/L (98-107); Glucose 103 mg/dL (74-99); Non-African American GFR(CKD) >90 (>60 ml/min/1.73 sqM); Sodium 138 mmol/L (137-145)
[2024-09-21 13:35] LABS: Magnesium 1.9 mg/dL (1.6-2.3); Potassium 5.1 mmol/L (3.5-5.1)
[2024-09-21 13:36] LABS: AST 32 U/L (17-59); Albumin 4.5 g/dL (3.5-5.0); Alkaline Phosphatase 106 U/L (38-126); Total Protein 7.6 g/dL (6.3-8.2)
[2024-09-21] MEDS ORDERED: NITROGLYCERIN SL TABS 0.4 MG TAB SUBLINGUAL PRN (13:57)
--- NOTE | 2024-09-21 14:08 | XR ---
EXAMINATION TYPE: XR chest 2V DATE OF EXAM: 09/21/2024 1:36 PM COMPARISON: Chest radiographs from 05/10/2023 CLINICAL INDICATION: Male, 59 years old with history of Chest Pain; TECHNIQUE: XR chest 2V Frontal and lateral views of the chest. FINDINGS: Lungs/Pleura: There is no evidence of pleural effusion, focal consolidation, or pneumothorax. Pulmonary vascularity: Unremarkable. Heart/mediastinum: Cardiomediastinal silhouette is unremarkable. Musculoskeletal: No acute osseous pathology. Other findings: None IMPRESSION: 1. No acute cardiopulmonary disease process. 2. COPD changes. [facility], , 09/21/2024 2:06 PM
[2024-09-21 14:36] LABS: INR 0.9 (<1.2); Partial Thromboplastin Time 23.6 sec (22.0-30.0); Prothrombin Time 10.5 sec (10.0-12.5)
--- NOTE | 2024-09-21 15:49 | P.HPIM ---
History of Present Illness H&P Date: 09/21/24 59 year old M with PMH of CAD s/p stenting on 04/2023 presents to the ED for chest pain. He reports an episode of palpitations last night that spontaneously resolved. 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 Pain was mid-sternal, radiating bilaterally (L>R), episodic (lasting 5-10 minutes), described as sharp and stabbing. Associated symptoms included lightheadedness and hot flashes. This prompted him to come to the ED. In the ED he underwent extensive evaluation. BP 122/86, HR 60, RR 18, 98% on RA. CBC, Coag panel, CMP significant for Hg 12.4, Hct 38.5, MCV 78.4, Cl 108, bicarb 20, glu 103. Mag 1.9. Trop < 0.012. D-Dimer 0.33. EKG showing sinus bradycardia. CXR showed COPD changes. Admitted for chest pain and ACS rule out. General: non toxic, no distress, appears at stated age Derm: warm, dry Head: atraumatic, normocephalic, symmetric Eyes: EOMI, no lid lag, anicteric sclera Mouth: no lip lesion, mucus membranes moist Cardiovascular: S1S2 vinh, no murmur Lungs: Clear to auscultation bilaterally, no accessory muscle use Ext: no gross muscle atrophy, no edema, no contractures Neuro: no focal neuro deficits Psych: Alert and oriented. Based on my assessment of this patient, this patient meets a high complexity level of care. Chest pain with history of CAD and stenting in 04/2023: Trend Trop/EKG to rule out ACS. ASA 81 mg PO QD. Effient 10 mg PO QD. Lipitor 80 mg PO QD. No BB due to bradycardia. Telemetry monitoring. Cardiology consultation. Microcytic anemia: Recommend age appropriate CA screening. No signs of active bleeding. Monitor. Previous smoker: 1/2-1 PPD since Third Age, quit in 2023. CODE STATUS: FULL CODE. DVT Prophylaxis: Lovenox SQ GI Prophylaxis: Designated medical POA if patient is not able to make medical decisions for themselves: Mom I have reviewed the following baby registry sales consultant notes: ED note I have reviewed the results of the following tests: As above. I have ordered the following tests: As above. I have discussed the care of this patient with the following independent historian: I have independently interpreted the following test below: EKG I have discussed the management of this patient with the following physician: Past Medical History Past Medical History: Coronary Artery Disease (CAD), Chest Pain / Angina, Hyperlipidemia, Hypertension, Myocardial Infarction ([place]) Additional Past Medical History / Comment(s): migraines, multiple broken bones Last Myocardial Infarction Date:: April 2023 History of Any Multi-Drug Resistant Organisms: None Reported Past Surgical History: Heart Catheterization With Stent Past Anesthesia/Blood Transfusion Reactions: No Reported Reaction Date of Last Stent Placement:: 05/10/23 Past Psychological History: Anxiety, Panic Disorder Smoking Status: Former smoker Past Alcohol Use History: None Reported Past Drug Use History: None Reported - Past Family History Father Family Medical History: Chest Pain / Angina, Coronary Artery Disease (CAD), Hyperlipidemia, Myocardial Infarction ([place]) Additional Family Medical History / Comment(s): History of CABG x4. Mother Family Medical History: CVA/TIA, Myocardial Infarction ([place]) Medications and Allergies Home Medications Medication Instructions Recorded Confirmed Type Aspirin 81 mg PO DAILY #30 tab 05/12/23 09/21/24 Rx Prasugrel [Effient] 10 mg PO DAILY #30 tab 05/12/23 09/21/24 Rx Atorvastatin [Lipitor] 80 mg PO DAILY 06/09/24 09/21/24 History Allergies Allergy/AdvReac Type Severity Reaction Status Date / Time No Known Allergies Allergy Verified 09/21/24 14:35 Physical Exam Vitals: Vital Signs Pulse Resp BP Pulse Ox 09/21/24 14:26 52 L 18 114/87 98 09/21/24 12:27 80 18 122/86 98 09/21/24 12:22 60 18 122/86 98 Intake and Output 09/21/24 09/21/24 09/21/24 06:59 14:59 22:59 Other: Weight 74.843 kg Results CBC & Chem 7: 09/21/24 12:47 09/21/24 12:47 Labs: Abnormal Lab Results - Last 24 Hours (Table) 09/21/24 09/21/24 Range/Units 12:47 12:47 Hgb 12.4 L (13.0-17.0) g/dL Hct 38.5 L (39.6-50.0) % MCV 78.4 L (80.0-97.0) fL MCH 25.3 L (27.0-32.0) pg MPV 9.0 L (9.5-12.2) fL Eosinophils # 0.39 H (0.04-0.35) 10*3/uL Chloride 108 H (98-107) mmol/L Carbon Dioxide 20 L (22-30) mmol/L Glucose 103 H (74-99) mg/dL
[2024-09-22 08:03] VITALS: RESP 16
[2024-09-22] MEDS ORDERED: ASPIRIN 325 MG TAB PO SCH (09:00)
[2024-09-22 10:29] LABS: Cholesterol 154.00 mg/dL (0.00-200.00); HDL Cholesterol 40.90 mg/dL (40.00-60.00); LDL Cholesterol,Calculated 99.4 mg/dL (0.0-131.0); Triglycerides 68.60 mg/dL (0.00-149.00); VLDL Calculation 13.72 mg/dL (5.00-40.00)
[2024-09-22] MEDS: ATORVASTATIN 80 MG TAB PO SCH (13:37)
[2024-09-22] MEDS: PRASUGREL 10 MG TAB PO SCH (13:37)
[2024-09-22] MEDS: ASPIRIN 81 MG PO SCH (13:37)
[2024-09-22] MEDS: ENOXAPARIN 40 MG/0.4 ML SYRINGE SQ SCH (13:37)
--- NOTE | 2024-09-22 15:46 | P.CRDCN ---
History of Present Illness Consult date: 09/22/24 History of present illness: HISTORY OF PRESENTING ILLNESS: 59-year-old known to Dr. Amado. Prior history of STEMI 04/2023 requiring PCI to first diagonal branch. Managed on aspirin prasugrel and Lipitor. Presents to hospital because of some symptoms of palpitations. This morning he was experiencing some substernal admitted sternal chest heaviness some radiation to the left side, describes it as sharp and stabbing type. No particular relationship to activity or rest. Started when he was resting. Associated with some lightheadedness and not flushing sensation. On admission noticed to be normotensive to hypertensive along with low resting heart rate. I made him walk in the unit and he has appropriate chronotropic competence with heart rate reaching up to mid 80s with walking. Admission labs were WNL with normal troponin, normal BUN/creatinine and Hb norm al D-dimer. LDL 99, EKG showed sinus bradycardia with Q waves high lateral leads. Telemetry in the hospital showed average heart rate in mid 50s with 2.7-second longest pause. ..................... ................................................................................ ......................................... Prior cardiac testing: Cardiac catheterization in 04/2023 requiring PCI to diagonal 1 ................................................................................ .............................................................. REVIEW OF SYSTEMS: 14 point review of system is negative except what is mentioned above in HPI. ..................................................... ................................................................................ ......... PHYSICAL EXAMINATION: Neck: Brisk carotid upstroke, no jugular venous distention. Lungs: Clear to auscultation. Heart: Regular rate and rhythm, S1-S2, , no murmur or rub. Abdomen: Soft nontender, positive bowel sounds. Extremities: No edema, intact distal pulses. Neuro: Alert, oritented, no focal deficits. Detailed neuro exam was not performed. .............................................................. ................................................................................ ASSESSMENT: # Atypical chest pain, rule out of ACS # Resting bradycardia with appropriate chronotropic competence # Palpitations along with flushing sensation # CAD status post PCI to diagonal 1 in 04/2023 point presented as STEMI # Ex-smoker. Stopped 04/2024 PLAN: Continue aspirin, Effient, Lipitor. I recommended to get a treadmill nuclear stress test and echocardiogram however patient is very eager to leave. He understands the risk factor of not getting his cardiac testing done including the risk of . He is very adamant to leave and not stay in the hospital. Recommend outpatient follow-up with Dr. Amado Set up a 7-day Holter monitor in the office to check for bradycardia burden and for any pauses. Hipolito Sun MD, FAC, [facility] Past Medical History Past Medical History: Coronary Artery Disease (CAD), Chest Pain / Angina, Hyperlipidemia, Hypertension, Myocardial Infarction ([place]) Additional Past Medical History / Comment(s): migraines, multiple broken bones, nose bleed Last Myocardial Infarction Date:: April 2023 History of Any Multi-Drug Resistant Organisms: None Reported Past Surgical History: Heart Catheterization With Stent Additional Past Surgical History / Comment(s): sinus/nasal surgery Past Anesthesia/Blood Transfusion Reactions: No Reported Reaction Date of Last Stent Placement:: 05/10/23 Smoking Status: Former smoker - Past Family History Father Family Medical History: Chest Pain / Angina, Coronary Artery Disease (CAD), Hyperlipidemia, Myocardial Infarction ([place]) Additional Family Medical History / Comment(s): History of CABG x4. Mother Family Medical History: CVA/TIA, Myocardial Infarction ([place]) Medications and Allergies Home Medications Medication Instructions Recorded Confirmed Type Aspirin 81 mg PO DAILY #30 tab 05/12/23 09/21/24 Rx Prasugrel [Effient] 10 mg PO DAILY #30 tab 05/12/23 09/21/24 Rx Atorvastatin [Lipitor] 80 mg PO DAILY 06/09/24 09/21/24 History Allergies Allergy/AdvReac Type Severity Reaction Status Date / Time No Known Allergies Allergy Verified 09/21/24 14:35 Physical Exam Vitals: Vital Signs Temp Pulse Pulse Resp BP BP Pulse Ox 09/22/24 07:10 98.2 F 44 L 16 107/64 98 09/22/24 00:56 97.9 F 47 L 15 104/68 98 09/21/24 20:00 56 L 09/21/24 18:55 98.0 F 56 L 18 125/77 97 09/21/24 17:35 98.1 F 50 L 18 129/79 99 09/21/24 15:52 97.9 F 50 L 18 125/81 98 Intake and Output 09/22/24 09/22/24 09/22/24 06:59 14:59 22:59 Other: # Voids 2 Results 09/21/24 12:47 09/21/24 12:47 Cardiac Enzymes 09/21/24 09/21/24 Range/Units 16:00 20:50 Troponin I <0.012 <0.012 (0.000-0.034) ng/mL Lipids 09/21/24 Range/Units 12:49 Triglycerides 68.60 (0.00-149.00) mg/dL Cholesterol 154.00 (0.00-200.00) mg/dL HDL Cholesterol 40.90 (40.00-60.00) mg/dL Cholesterol/HDL Ratio 3.77 Ratio Current Medications Generic Name Dose Route Start Last Admin Trade Name Freq PRN Reason Stop Dose Admin Aspirin 81 mg 09/22/24 09:00 09/22/24 13:37 Aspirin 81 Mg PO 81 mg DAILY CLOTILDE Administration Atorvastatin Calcium 80 mg 09/22/24 09:00 09/22/24 13:37 Atorvastatin 80 Mg Tab PO 80 mg DAILY CLOTILDE Administration Enoxaparin Sodium 40 mg 09/22/24 09:00 09/22/24 13:37 Enoxaparin 40 Mg/0.4 Ml Syringe SQ Not Given DAILY CLOTILDE Nitroglycerin 0.4 mg 09/21/24 13:57 Nitroglycerin Sl Tabs 0.4 Mg Tab SUBLINGUAL Q5M PRN Chest Pain Prasugrel 10 mg 09/22/24 09:00 09/22/24 13:37 Prasugrel 10 Mg Tab PO 10 mg DAILY CLOTILDE Administration Intake and Output 09/22/24 09/22/24 09/22/24 06:59 14:59 22:59 Other: # Voids 2 09/21/24 12:47 09/21/24 12:47
--- NOTE | 2024-09-22 15:49 | P.DS ---
Providers Date of admission: 09/21/24 13:59 Expected date of discharge: 09/22/24 Attending physician: Sarah Palomares MD Consults: 09/21/24 13:57 Consult Physician Urgent Consulting Provider: Jcarlos Ryder Consult Reason/Comments: cp Do you want consulting provider notified?: Yes Primary care physician: [facility] Course: 59 year old M with PMH of CAD s/p stenting on 04/2023 presents to the ED for chest pain. He reports an episode of palpitations last night that spontaneously resolved. 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 Pain was mid-sternal, radiating bilaterally (L>R), episodic (lasting 5-10 minutes), described as sharp and stabbing. Associated symptoms included lightheadedness and hot flashes. This prompted him to come to the ED. In the ED he underwent extensive evaluation. BP 122/86, HR 60, RR 18, 98% on RA. CBC, Coag panel, CMP significant for Hg 12.4, Hct 38.5, MCV 78.4, Cl 108, bicarb 20, glu 103. Mag 1.9. Trop < 0.012. D-Dimer 0.33. EKG showing sinus bradycardia. CXR showed COPD changes. Admitted for chest pain and ACS rule out. 09/22 Patient was seen and examined. Chest pain resolved. Troponins negative. Evaluated by Cardiology recommending outpatient stress and holter. Discharge Plan: Follow up with PCP within 1-[address] Amado within 1 week for possible outpatient stress test and Holter. General: non toxic, no distress, appears at stated age Derm: warm, dry Head: atraumatic, normocephalic, symmetric Eyes: EOMI, no lid lag, anicteric sclera Mouth: no lip lesion, mucus membranes moist Cardiovascular: S1S2 vinh, no murmur Lungs: Clear to auscultation bilaterally, no accessory muscle use Ext: no gross muscle atrophy, no edema, no contractures Neuro: no focal neuro deficits Psych: Alert and oriented. Discharge Diagnosis: Chest pain with history of CAD and stenting in 04/2023 Microcytic anemia Previous smoker This complex discharge took 35 minutes to complete. Patient Condition at Discharge: Stable Plan - Discharge Summary Discharge Rx Participant: No New Discharge Prescriptions: Continue Aspirin 81 mg PO DAILY #30 tab Prasugrel [Effient] 10 mg PO DAILY #30 tab Atorvastatin [Lipitor] 80 mg PO DAILY Discharge Medication List Aspirin 81 mg PO DAILY #30 tab 05/12/23 [Rx] Prasugrel [Effient] 10 mg PO DAILY #30 tab 05/12/23 [Rx] Atorvastatin [Lipitor] 80 mg PO DAILY 06/09/24 [History] Follow up Appointment(s)/Referral(s): Edwar Amado MD [STAFF PHYSICIAN] - 1 Week Dieudonne Vogel DO [Primary Care Provider] - 1-2 days Discharge Disposition: HOME SELF-CARE
[2024-09-22 15:57] VITALS: BP 104/68; PULSE 47; TEMP 97.5
== END 2024-09-22 16:20 | disposition home or self-care (01) ==
LOC: SUPCPDRO 12:12 → EC 12:12 → 6NMEDSUR 13:59
PROVIDERS: ADMIT Family Medicine; ATTEND Family Medicine
DX: R07.89 Other chest pain (principal); I25.10 Atherosclerotic heart disease of native coronary artery without angina pectoris; I25.2 Old myocardial infarction; D50.9 Iron deficiency anemia, unspecified; E78.5 Hyperlipidemia, unspecified; Z79.02 Long term (current) use of antithrombotics/antiplatelets; Z79.82 Long term (current) use of aspirin; Z79.899 Other long term (current) drug therapy; Z82.49 Family history of ischemic heart disease and other diseases of the circulatory system; Z87.891 Personal history of nicotine dependence; Z95.5 Presence of coronary angioplasty implant and graft
CPT/HCPCS: 99285; 36415; 93005; 85379; 80061; 80053; 83735; 84484; 85025; 85610; 85730; 71046; G0378 ×2